=== PATIENT | male | born 1940 | race Caucasian/White ===

== ENCOUNTER 2018-08-16 04:25 | Inpatient (IN) ==
[2018-08-16] MEDS ORDERED: 0.9 % Sodium Chloride 1,000 ML IVC ONE (04:37)
[2018-08-16] MEDS ORDERED: methylPREDNISolone 125 MG/2 ML VIAL IVP ONE (04:47)
[2018-08-16] MEDS ORDERED: Ipratropium/Albuterol Neb 3 ML IH ONE (04:47)
--- NOTE | 2018-08-16 05:03 | Emergency Department Note ---
Disposition Clinical Impression: Hypoxia, Severe sepsis, Acute kidney injury Pneumonia Qualifiers: Pneumonia type: due to unspecified organism Laterality: unspecified laterality Lung location: unspecified part of lung Qualified Code(s): J18.9 - Pneumonia, unspecified organism Disposition: Admitted As Inpatient Condition: Serious Time of Disposition: 06:06 SOB HPI - General Chief Complaint: ED Shortness of Breath/Dyspnea Stated Complaint: Saqib coughing up blood Time Seen by Provider: 08/16/18 04:29 Source: patient, family Mode of arrival: ambulatory Limitations: no limitations Nursing Notes Reviewed: Yes Vital Signs Reviewed: Yes - History of Present Illness 77-year-old male history of COPD on 3L home oxygen supplementation, CHF, atrial fibrillation on Eliquis, and CAD presents emergency department with Sun with complaint of difficulty breathing and cough. Reports 2 days of worsening difficulty breathing with nonproductive cough. Patient was febrile here. Den ies any fevers or chills at home. He reports some chest pain with history of atrial fibrillation. He also reports the past 3 hours he was coughing and notice blood. Patient was coughing during my examination and no blood was noted. Reports of a cracked rib after fall 6 months ago. Denies any other recent injury or trauma. Has not noticed any leg swelling. He has been using inhalers at home and reports improvement with them. He denies any recent hospitalization, antibiotic use or steroid use. He denies any G.I. bleed symptoms. Pt Subjective Complaint: shortness of breath, cough - Related Data Home Medications Medication Instructions Recorded Confirmed Albuterol Sulfate [Albuterol 2 puff IH Q6HR PRN 09/16/16 08/16/18 Inhaler] Amlodipine Besylate 10 mg PO DAILY 09/16/16 08/16/18 Apixaban [Eliquis] 5 mg PO BID 09/16/16 08/16/18 Aspirin [Lo-Dose Aspirin EC] 81 mg PO DAILY 09/16/16 08/16/18 Budesonide/Formoterol 160/4.5 2 puff IH BIDR 09/16/16 08/16/18 [Symbicort 160/4.5] Fluticasone Propionate Nasal 1 spray NS BID 09/16/16 08/16/18 [Flonase] Furosemide [Lasix] 80 mg PO DAILY 09/16/16 08/16/18 Guaifenesin [Mucus Relief] 400 mg PO QID PRN 09/16/16 08/16/18 Lovastatin 20 mg PO QPM 09/16/16 08/16/18 Montelukast [Singulair] 10 mg PO HS 09/16/16 08/16/18 Omeprazole 20 mg PO DAILY 09/16/16 08/16/18 Potassium Chloride [Klor-Con 10] 10 meq PO DAILY 09/16/16 08/16/18 Tamsulosin HCl [Flomax] 0.8 mg PO DAILY 09/16/16 08/16/18 Albuterol Neb [Proventil Neb] 2.5 mg IH Q6H PRN 12/22/17 08/16/18 Spironolactone [Aldactone] 12.5 mg PO DAILY 12/22/17 08/16/18 Allopurinol [Zyloprim 100 MG] 200 mg PO BID 08/16/18 08/16/18 Cholecalciferol (D-3) [Vitamin D] 1,000 unit PO DAILY 08/16/18 08/16/18 Ipratropium [Atrovent Inhaler] 1 puff IH TID PRN 08/16/18 08/16/18 Metoprolol Succinate [Toprol Xl] 50 mg PO DAILY 08/16/18 08/16/18 hydrALAZINE [HydrALAZINE] 25 mg PO Q8HR 08/16/18 08/16/18 Allergies Allergy/AdvReac Type Severity Reaction Status Date / Time lisinopril Allergy UNKNOWN Verified 02/19/18 13:50 losartan Allergy UNKNOWN Verified 02/19/18 13:50 simvastatin Allergy UNKNOWN Verified 02/19/18 13:50 All systems ED: reviewed and negative except as stated. Review of Systems: As Per HPI Constitutional: Reports: fever. Denies: chills ENT ED: Denies: congestion Cardiovascular: Reports: chest pain, dyspnea on exertion. Denies: palpitations Respiratory: Reports: cough, dyspnea Gastrointestinal: Denies: abdominal pain, nausea, vomiting, hematemesis, melena, hematochezia Genitourinary: Denies: urgency, dysuria Musculoskeletal: Denies: back pain Integumentary: Denies: rash, abrasion Neurological: Denies: headache Endocrine: Denies: fatigue Past Medical History - Past Medical History Attestation: Yes The following information was validated with the patient. Source: patient Medical history: Reports: arthritis, atrial fibrillation, cancer, CHF, COPD, CVA, GERD, hyperlipidemia, hypertension, myocardial infarction, renal disease, TIA, other - Social History Smoking Status: Former smoker Smokeless Tobacco Status: No Alcohol use: Reports: rarely Drug use: Reports: none Physical Exam - General Limitations: no limitations General appearance: alert, in distress (Respiratory), obese - Head Head exam: atraumatic, normocephalic, normal inspection - Eye Eye exam: Present: normal appearance, PERRL, EOMI - ENT ENT exam: normal exam, normal oropharynx, mucous membranes moist - Neck Neck exam: Present: normal inspection, full ROM, trachea midline - Chest Chest inspection: Present: normal inspection, symmetric chest wall rise - Respiratory Respiratory exam: Present: respiratory distress, wheezes (Bilateral), prolonged expiratory phase, other (Tight aeration) - Expanded Respiratory Exam Location: wheezes: Left, Right, rales: Right, Left - Cardiovascular Cardiovascular exam: Present: regular rate, normal rhythm, normal heart sounds - Abdominal Exam Abdominal exam: Present: soft, Non-Tender, normal bowel sounds. Absent: tenderness, distention, guarding, rebound, rigidity - Extremities Exam Extremities exam: Present: normal inspection, full ROM, normal capillary refill. Absent: tenderness, pedal edema - Back Exam Back exam: Present: normal inspection, full ROM. Absent: tenderness - Neurological Exam Neurological exam: Present: alert, oriented X3 - Psychiatric Psychiatric exam: Present: normal affect, anxious - Skin Skin exam: Present: warm, dry, intact, normal color. Absent: rash, cyanosis, diaphoresis Course Course Narrative: Patient presents with difficulty breathing cough and fever here in the emergency department. Symptoms for the past 48 hours. Patient has a history of chronic atrial fibrillation in history of COPD. Breathing treatments have been helping at home. He does meet SIRS criteria even his fever and mild tachycardia 105. Sepsis workup initiated. Patient initially hypoxic on arrival and was placed on supplemental oxygen. Will head charrer DuoNeb treatment and steroids, if he co ntinues to decompensate a consider noninvasive positive pressure ventilation. - Reevaluation(s) Reevaluation #1: Patient received a total of 3 DuoNeb treatment with steroids with some improvement of the wheezing however continues to have tight aeration. He is hypoxic even on the non-rebreather. He was transitioned to a CPAP with now oxygen saturations in the upper 80s. Arterial blood gas shows normal pH with a CO2 of 33. IV Tylenol for fever. Review of his chest x-ray shows a pneumonia that appears greater on the left and the right. At this time sepsis was identified at 0518. He has a mild leukocytosis. His lactate is elevated greater than 2. Troponin less than 0.03. He is not hypotensive but is considered severe sepsis. Will continue with cautious fluid resuscitation given his history of congestive heart failure. Will treat him with ceftriaxone and azithromycin. Patient will require admission for further evaluation and treatment for his hypoxia, community acquired pneumonia, severe sepsis. Time: 05:18 Reevaluation #2: Patient has a history of lung cancer in remission after radiation which he finished approximately 2 years ago. Time: 06:18 - Consultations Consultation #1: Spoke with on-call hospitalist luís Barnhart to admit for pneumonia, severe sepsis, hypoxia. No further orders at this time Time: 06:17 Vital Signs Temperature 101.4 F H 08/16/18 04:29 Pulse Rate 115 08/16/18 04:29 Respiratory Rate 25 08/16/18 04:29 Blood Pressure 116/67 08/16/18 04:29 O2 Sat by Pulse Oximetry 88 08/16/18 04:29 Temperature 101.4 F H 08/16/18 04:29 Pulse Rate 105 08/16/18 05:05 Respiratory Rate 28 08/16/18 05:20 Blood Pressure 114/90 08/16/18 05:05 O2 Sat by Pulse Oximetry 88 08/16/18 05:20 Oxygen Delivery Oxygen Delivery Aerosol Mask Shortness of Breath/Dyspnea - [facility] Narrative Medical decision making narrative: Patient was discussed with my attending physician who agrees with ED management and final disposition. They independently evaluated the patient. Please refer to their attestation to this encounter for additional information. This note was generated by [employer] voice recognition software and as a result grammatical or spelling errors may occur using this program. - Medical Records Medical records reviewed: Yes I reviewed the patient's medical records. - Lab Data Lab results reviewed: Yes I reviewed the patient's lab results. Result diagrams: 08/16/18 05:16 08/16/18 05:16 Lab Results 1108/16/18 08/16/18 Range/Units 05:14 05:16 05:16 WBC 13.6 H (4.3-11.1) K/mcL RBC 4.61 (4.19-5.50) M/mcL Hgb 12.8 L (12.9-16.9) g/dL Hct 40.4 (37.5-50.1) % MCV 87.6 (83.0-100.0) fL MCH 27.8 L (28.0-33.3) pg MCHC 31.7 (31.6-35.5) g/dL RDW 16.0 H (11.5-14.5) % Plt Count 179 (140-400) K/mcL MPV 10.2 (9.4-12.4) fL Immature Gran % 0.5 (0-4) % Seg Neutrophils % 83.1 % Lymphocytes % 9.6 % Monocytes % 6.6 % Eosinophils % 0.0 % Basophils % 0.2 % Neutrophils # 11.3 H (1.6-8.9) K/mcL Lymphocytes # 1.3 (0.6-4.6) K/mcL Monocytes # 0.9 (0.0-1.3) K/mcL Eosinophils # 0.0 (0.0-0.6) K/mcL Basophils # 0.0 (0.0-0.2) K/mcL PT 17.0 H (9.4-12.1) Seconds INR 1.5 APTT 31.1 (26.0-36.0) Seconds Sample Site R Radial ABG pH 7.45 (7.32-7.45) pH Units ABG pCO2 33 L (35-45) mmHg ABG pO2 52 L (85-104) mmHg ABG HCO3 23 (21-27) mEq/L ABG Total CO2 24 (20-26) mEq/L ABG O2 Saturation 88 L (95-98) % ABG Base Excess 0 (-2 to 3) mEq/L Ilan Test N/A O2 Delivery Device AeroMask Inspired O2 10.0 (1-15=lpm [id number]=%) Sodium (136-145) mEq/L Potassium (3.5-5.1) mEq/L Chloride (98-107) mEq/L Carbon Dioxide (23-29) mEq/L BUN (8-23) mg/dL Creatinine (0.70-1.30) mg/dL Est GFR ( Amer) (> 60) Est GFR (Non-Af Amer) (> 60) BUN/Creatinine Ratio (6-26) Glucose (70-105) mg/dL Calculated Osmolality (280-300) Lactic Acid (0.5-2.2) mmol/L Calcium (8.6-10.3) mg/dL Phosphorus (2.7-4.5) mg/dL Magnesium (1.6-2.6) mg/dL Total Bilirubin (0.3-1.0) mg/dL Direct Bilirubin (0.0-0.2) mg/dL Indirect Bilirubin (0.0-1.2) mg/dL AST (13-39) Units/L ALT (7-52) Units/L Alkaline Phosphatase (34-104) Units/L Troponin I (< 0.04) ng/mL Serum Total Protein (6.4-8.9) g/dL Albumin (3.5-5.7) g/dL Globulin (2.4-3.5) g/dL Albumin/Globulin Ratio (1.1-2.2) 08/16/18 08/16/18 Range/Units 05:16 05:16 WBC (4.3-11.1) K/mcL RBC (4.19-5.50) M/mcL Hgb (12.9-16.9) g/dL Hct (37.5-50.1) % MCV (83.0-100.0) fL MCH (28.0-33.3) pg MCHC (31.6-35.5) g/dL RDW (11.5-14.5) % Plt Count (140-400) K/mcL MPV (9.4-12.4) fL Immature Gran % (0-4) % Seg Neutrophils % % Lymphocytes % % Monocytes % % Eosinophils % % Basophils % % Neutrophils # (1.6-8.9) K/mcL Lymphocytes # (0.6-4.6) K/mcL Monocytes # (0.0-1.3) K/mcL Eosinophils # (0.0-0.6) K/mcL Basophils # (0.0-0.2) K/mcL PT (9.4-12.1) Seconds INR APTT (26.0-36.0) Seconds Sample Site ABG pH (7.32-7.45) pH Units ABG pCO2 (35-45) mmHg ABG pO2 (85-104) mmHg ABG HCO3 (21-27) mEq/L ABG Total CO2 (20-26) mEq/L ABG O2 Saturation (95-98) % ABG Base Excess (-2 to 3) mEq/L Ilan Test O2 Delivery Device Inspired O2 (1-15=lpm [id number]=%) Sodium 138 (136-145) mEq/L Potassium 4.0 (3.5-5.1) mEq/L Chloride 105 (98-107) mEq/L Carbon Dioxide 23 (23-29) mEq/L BUN 22 (8-23) mg/dL Creatinine 1.45 H (0.70-1.30) mg/dL Est GFR ( Amer) 57 L (> 60) Est GFR (Non-Af Amer) 47 L (> 60) BUN/Creatinine Ratio 15 (6-26) Glucose 164 H (70-105) mg/dL Calculated Osmolality 293 (280-300) Lactic Acid 2.4 H (0.5-2.2) mmol/L Calcium 9.2 (8.6-10.3) mg/dL Phosphorus 1.8 L (2.7-4.5) mg/dL Magnesium 2.0 (1.6-2.6) mg/dL Total Bilirubin 1.4 H (0.3-1.0) mg/dL Direct Bilirubin 0.3 H (0.0-0.2) mg/dL Indirect Bilirubin 1.1 (0.0-1.2) mg/dL AST 11 L (13-39) Units/L ALT 9 (7-52) Units/L Alkaline Phosphatase 55 (34-104) Units/L Troponin I < 0.03 (< 0.04) ng/mL Serum Total Protein 6.3 L (6.4-8.9) g/dL Albumin 4.0 (3.5-5.7) g/dL Globulin 2.3 L (2.4-3.5) g/dL Albumin/Globulin Ratio 1.7 (1.1-2.2) - Radiology Data Radiology results reviewed: Yes I reviewed the patient's radiology results. Chest X-Ray 08/16/18 04:41 IMPRESSION: Bibasilar airspace disease left greater than right concerning for pneumonia. D/ / Panda Mills MD / Panda Mills MD Interpreting Provider: Panda Mills MD - EKG Data EKG attestation: Yes I reviewed and interpreted this EKG. EKG results narrative: EKG performed 451 shows atrial fibrillation with a heart rhythm of 118, no ST elevation or depression, normal axis, good R wave progression. There is no old EKG available for comparison at this time. No acute ischemic changes.
[2018-08-16 05:22] LABS: ABG Base Excess 0 mEq/L (-2 to 3); ABG HCO3 23 mEq/L (21-27); ABG Oxygen Saturation 88 % (95-98); ABG PCO2 33 mmHg (35-45); ABG PH 7.45 pH Units (7.32-7.45); ABG PO2 52 mmHg (85-104); ABG TCO2 24 mEq/L (20-26)
[2018-08-16] MEDS ORDERED: *HR* LORazepam 2 MG/ML VIAL IVP ONE (05:26)
[2018-08-16] MEDS ORDERED: *HR* LORazepam 2 MG/ML VIAL ONE (05:28)
[2018-08-16 05:35] LABS: Basophils % 0.2 %; Hematocrit 40.4 % (37.5-50.1); Hemoglobin 12.8 g/dL (12.9-16.9); Immature Granulocytes % 0.5 % (0-4); Lymphocytes # 1.3 K/mcL (0.6-4.6); Lymphocytes % 9.6 %; Mean Corpuscular HGB Conc 31.7 g/dL (31.6-35.5); Mean Corpuscular Hemoglobin 27.8 pg (28.0-33.3); Mean Corpuscular Volume 87.6 fL (83.0-100.0); Mean Platelet Volume 10.2 fL (9.4-12.4); Monocytes # 0.9 K/mcL (0.0-1.3); Monocytes % 6.6 %; Neutrophils # 11.3 K/mcL (1.6-8.9); Platelet Count 179 K/mcL (140-400); Red Blood Count 4.61 M/mcL (4.19-5.50); Segmented Neutrophils % 83.1 %
[2018-08-16 05:47] LABS: INR 1.5
[2018-08-16] MEDS ORDERED: Acetaminophen IV 1,000 MG/100 ML INFUS..BTL IVPB ONE (05:47)
[2018-08-16 05:49] LABS: Activated Partial Thrombo Time 31.1 Seconds (26.0-36.0)
[2018-08-16 05:57] LABS: Alanine Aminotransferase 9 Units/L (7-52); Albumin/Globulin Ratio 1.7 (1.1-2.2); Alkaline Phosphatase 55 Units/L (34-104); Aspartate Amino Transferase 11 Units/L (13-39); BUN/Creatinine Ratio 15 (6-26); Bilirubin,Direct 0.3 mg/dL (0.0-0.2); Bilirubin,Indirect 1.1 mg/dL (0.0-1.2); Bilirubin,Total 1.4 mg/dL (0.3-1.0); Blood Urea Nitrogen 22 mg/dL (8-23); Calcium 9.2 mg/dL (8.6-10.3); Carbon Dioxide 23 mEq/L (23-29); Chloride 105 mEq/L (98-107); Globulin 2.3 g/dL (2.4-3.5); Glucose 164 mg/dL (70-105); Osmolality,Calculated 293 (280-300); Phosphorous 1.8 mg/dL (2.7-4.5); Sodium 138 mEq/L (136-145); Total Protein 6.3 g/dL (6.4-8.9); Troponin I < 0.03 ng/mL (< 0.04); eGFR For Non-African Americans 47 (> 60)
[2018-08-16] MEDS ORDERED: Azithromycin 500 MG in D5% in Water 250 ML IVPB ONE (06:02)
[2018-08-16] MEDS ORDERED: cefTRIAXone 1,000 MG in Water for inj. (sterile) 20 ML 10 ML IVP ONE ×2 (06:03→09:00)
--- NOTE | 2018-08-16 07:52 | Emergency Department Note ---
Disposition Clinical Impression: Hypoxia, Severe sepsis, Acute kidney injury Pneumonia Qualifiers: Pneumonia type: due to unspecified organism Laterality: unspecified laterality Lung location: unspecified part of lung Qualified Code(s): J18.9 - Pneumonia, unspecified organism Disposition: Admitted As Inpatient Condition: Serious General Adult HPI - General Chief complaint: ED Shortness of Breath/Dyspnea Stated complaint: Saqib coughing up blood Time Seen by Provider: 08/16/18 04:29 Source: patient, family Mode of arrival: ambulatory Limitations: no limitations Nursing Notes Reviewed: Yes Vital Signs Reviewed: Yes - History of Present Illness Pain Scale: 10 - Related Data Home Medications Medication Instructions Recorded Confirmed Albuterol Sulfate [Albuterol 2 puff IH Q6HR PRN 09/16/16 08/16/18 Inhaler] Amlodipine Besylate 10 mg PO DAILY 09/16/16 08/16/18 Apixaban [Eliquis] 5 mg PO BID 09/16/16 08/16/18 Aspirin [Lo-Dose Aspirin EC] 81 mg PO DAILY 09/16/16 08/16/18 Budesonide/Formoterol 160/4.5 2 puff IH BIDR 09/16/16 08/16/18 [Symbicort 160/4.5] Fluticasone Propionate Nasal 1 spray NS BID 09/16/16 08/16/18 [Flonase] Furosemide [Lasix] 80 mg PO DAILY 09/16/16 08/16/18 Guaifenesin [Mucus Relief] 400 mg PO QID PRN 09/16/16 08/16/18 Lovastatin 20 mg PO QPM 09/16/16 08/16/18 Montelukast [Singulair] 10 mg PO HS 09/16/16 08/16/18 Omeprazole 20 mg PO DAILY 09/16/16 08/16/18 Potassium Chloride [Klor-Con 10] 10 meq PO DAILY 09/16/16 08/16/18 Tamsulosin HCl [Flomax] 0.8 mg PO DAILY 09/16/16 08/16/18 Albuterol Neb [Proventil Neb] 2.5 mg IH Q6H PRN 12/22/17 08/16/18 Spironolactone [Aldactone] 12.5 mg PO DAILY 12/22/17 08/16/18 Allopurinol [Zyloprim 100 MG] 200 mg PO BID 08/16/18 08/16/18 Cholecalciferol (D-3) [Vitamin D] 1,000 unit PO DAILY 08/16/18 08/16/18 Ipratropium [Atrovent Inhaler] 1 puff IH TID PRN 08/16/18 08/16/18 Metoprolol Succinate [Toprol Xl] 50 mg PO DAILY 08/16/18 08/16/18 hydrALAZINE [HydrALAZINE] 25 mg PO Q8HR 08/16/18 08/16/18 Allergies Allergy/AdvReac Type Severity Reaction Status Date / Time lisinopril Allergy UNKNOWN Verified 02/19/18 13:50 losartan Allergy UNKNOWN Verified 02/19/18 13:50 simvastatin Allergy UNKNOWN Verified 02/19/18 13:50 Constitutional: Reports: fever. Denies: chills ENT ED: Denies: congestion Cardiovascular: Reports: chest pain, dyspnea on exertion. Denies: palpitations Respiratory: Reports: cough, dyspnea Gastrointestinal: Denies: abdominal pain, nausea, vomiting, hematemesis, melena, hematochezia Genitourinary: Denies: urgency, dysuria Musculoskeletal: Denies: back pain Integumentary: Denies: rash, abrasion Neurological: Denies: headache Endocrine: Denies: fatigue Past Medical History - Past Medical History Medical history: Reports: arthritis, atrial fibrillation, cancer, CHF, COPD, CVA, GERD, hyperlipidemia, hypertension, myocardial infarction, renal disease, TIA, other - Social History Smoking Status: Former smoker Smokeless Tobacco Status: No Alcohol use: Reports: rarely Drug use: Reports: none Physical Exam - General Limitations: no limitations General appearance: alert, in distress (Respiratory), obese Course Vital Signs Temperature 101.4 F H 08/16/18 04:29 Pulse Rate 115 08/16/18 04:29 Respiratory Rate 25 08/16/18 04:29 Blood Pressure 116/67 08/16/18 04:29 O2 Sat by Pulse Oximetry 88 08/16/18 04:29 Temperature 101.4 F H 08/16/18 04:29 Pulse Rate 112 08/16/18 07:22 Respiratory Rate 24 08/16/18 07:22 Blood Pressure 91/51 08/16/18 07:22 O2 Sat by Pulse Oximetry 91 08/16/18 07:22 Oxygen Delivery Oxygen Delivery Bipap Medical Decision Making - Lab Data Lab results reviewed: Yes I reviewed the patient's lab results. Result diagrams: 08/16/18 05:16 08/16/18 05:16 Lab Results 08/16/18 08/16/18 08/16/18 Range/Units 05:14 05:16 05:16 WBC 13.6 H (4.3-11.1) K/mcL RBC 4.61 (4.19-5.50) M/mcL Hgb 12.8 L (12.9-16.9) g/dL Hct 40.4 (37.5-50.1) % MCV 87.6 (83.0-100.0) fL MCH 27.8 L (28.0-33.3) pg MCHC 31.7 (31.6-35.5) g/dL RDW 16.0 H (11.5-14.5) % Plt Count 179 (140-400) K/mcL MPV 10.2 (9.4-12.4) fL Immature Gran % 0.5 (0-4) % Seg Neutrophils % 83.1 % Lymphocytes % 9.6 % Monocytes % 6.6 % Eosinophils % 0.0 % Basophils % 0.2 % Neutrophils # 11.3 H (1.6-8.9) K/mcL Lymphocytes # 1.3 (0.6-4.6) K/mcL Monocytes # 0.9 (0.0-1.3) K/mcL Eosinophils # 0.0 (0.0-0.6) K/mcL Basophils # 0.0 (0.0-0.2) K/mcL PT 17.0 H (9.4-12.1) Seconds INR 1.5 APTT 31.1 (26.0-36.0) Seconds Sample Site R Radial ABG pH 7.45 (7.32-7.45) pH Units ABG pCO2 33 L (35-45) mmHg ABG pO2 52 L (85-104) mmHg ABG HCO3 23 (21-27) mEq/L ABG Total CO2 24 (20-26) mEq/L ABG O2 Saturation 88 L (95-98) % ABG Base Excess 0 (-2 to 3) mEq/L Ilan Test N/A O2 Delivery Device AeroMask Inspired O2 10.0 (1-15=lpm [id number]=%) Sodium (136-145) mEq/L Potassium (3.5-5.1) mEq/L Chloride (98-107) mEq/L Carbon Dioxide (23-29) mEq/L BUN (8-23) mg/dL Creatinine (0.70-1.30) mg/dL Est GFR ( Amer) (> 60) Est GFR (Non-Af Amer) (> 60) BUN/Creatinine Ratio (6-26) Glucose (70-105) mg/dL Calculated Osmolality (280-300) Lactic Acid (0.5-2.2) mmol/L Calcium (8.6-10.3) mg/dL Phosphorus (2.7-4.5) mg/dL Magnesium (1.6-2.6) mg/dL Total Bilirubin (0.3-1.0) mg/dL Direct Bilirubin (0.0-0.2) mg/dL Indirect Bilirubin (0.0-1.2) mg/dL AST (13-39) Units/L ALT (7-52) Units/L Alkaline Phosphatase (34-104) Units/L Troponin I (< 0.04) ng/mL Serum Total Protein (6.4-8.9) g/dL Albumin (3.5-5.7) g/dL Globulin (2.4-3.5) g/dL Albumin/Globulin Ratio (1.1-2.2) 08/16/18 08/16/18 Range/Units 05:16 05:16 WBC (4.3-11.1) K/mcL RBC (4.19-5.50) M/mcL Hgb (12.9-16.9) g/dL Hct (37.5-50.1) % MCV (83.0-100.0) fL MCH (28.0-33.3) pg MCHC (31.6-35.5) g/dL RDW (11.5-14.5) % Plt Count (140-400) K/mcL MPV (9.4-12.4) fL Immature Gran % (0-4) % Seg Neutrophils % % Lymphocytes % % Monocytes % % Eosinophils % % Basophils % % Neutrophils # (1.6-8.9) K/mcL Lymphocytes # (0.6-4.6) K/mcL Monocytes # (0.0-1.3) K/mcL Eosinophils # (0.0-0.6) K/mcL Basophils # (0.0-0.2) K/mcL PT (9.4-12.1) Seconds INR APTT (26.0-36.0) Seconds Sample Site ABG pH (7.32-7.45) pH Units ABG pCO2 (35-45) mmHg ABG pO2 (85-104) mmHg ABG HCO3 (21-27) mEq/L ABG Total CO2 (20-26) mEq/L ABG O2 Saturation (95-98) % ABG Base Excess (-2 to 3) mEq/L Ilan Test O2 Delivery Device Inspired O2 (1-15=lpm [id number]=%) Sodium 138 (136-145) mEq/L Potassium 4.0 (3.5-5.1) mEq/L Chloride 105 (98-107) mEq/L Carbon Dioxide 23 (23-29) mEq/L BUN 22 (8-23) mg/dL Creatinine 1.45 H (0.70-1.30) mg/dL Est GFR ( Amer) 57 L (> 60) Est GFR (Non-Af Amer) 47 L (> 60) BUN/Creatinine Ratio 15 (6-26) Glucose 164 H (70-105) mg/dL Calculated Osmolality 293 (280-300) Lactic Acid 2.4 H (0.5-2.2) mmol/L Calcium 9.2 (8.6-10.3) mg/dL Phosphorus 1.8 L (2.7-4.5) mg/dL Magnesium 2.0 (1.6-2.6) mg/dL Total Bilirubin 1.4 H (0.3-1.0) mg/dL Direct Bilirubin 0.3 H (0.0-0.2) mg/dL Indirect Bilirubin 1.1 (0.0-1.2) mg/dL AST 11 L (13-39) Units/L ALT 9 (7-52) Units/L Alkaline Phosphatase 55 (34-104) Units/L Troponin I < 0.03 (< 0.04) ng/mL Serum Total Protein 6.3 L (6.4-8.9) g/dL Albumin 4.0 (3.5-5.7) g/dL Globulin 2.3 L (2.4-3.5) g/dL Albumin/Globulin Ratio 1.7 (1.1-2.2) - Radiology Data Radiology results reviewed: Yes I reviewed the patient's radiology results. Chest X-Ray 08/16/18 04:41 IMPRESSION: Bibasilar airspace disease left greater than right concerning for pneumonia. D/ / Panda Mills MD / Panda Mills MD Interpreting Provider: Panda Mills MD - EKG Data EKG #1 EKG attestation: Yes I reviewed and interpreted this EKG. EKG results narrative: EKG shows atrial fibrillation with RVR with a ventricular rate of 118. No acute ST segment elevation or depression. Critical Care Time Critical Care Time: Yes Total Critical Care Time: 40 Attestation: Critical care performed: Time is exclusive of separately billable procedures. Time includes: direct patient care, patient reassessment, coordination of patient care, interpretation of data (laboratory data, radiology data, and respiratory data), review of patient's medical records, medical consultation and documentation of patient care. Procedures included in critical care time: Procedures excluded from critical care time: Attestation Statement - Attestation Attestation: I, Gonzalo Wahl MD, personally evaluated this patient and discussed their management with the resident physician. I reviewed the resident's note and agree with the documented findings, medical decision making, and plan of care. 77-year-old male with history of COPD presents to the emergency department with a complaint of increasing cough and shortness of breath over the past 2 days. Symptoms worse tonight and developed some hemoptysis a few hours prior to arrival. Home oxygen and nebulizers tonight did not seem to be helping. On examination patient is a well-developed obese elderly male in moderate respiratory distress. He is alert and oriented 3. There is no cyanosis or diaphoresis. Breath sounds are decreased bilaterally with scattered bilateral expiratory wheezes. Heart irregularly irregular with a mild tachycardia. Abdomen is soft with present bowel sounds. No tenderness on palpation. No pedal edema. Chest x-ray shows bibasilar pneumonia, left worse than right. EKG shows atrial fibrillation with RVR. Labs reviewed. Elevated lactic acid. Patient meets severe sepsis criteria. IV antibiotics initiated. He was placed on CPAP. The hospitalist, Dr. Avalos, was consulted and accepted admission of the patient.
[2018-08-16] MEDS: Ipratropium/Albuterol Neb 3 ML IH SCH ×5 (08:24→23:58)
[2018-08-16] MEDS ORDERED: Doxycycline 100 MG in 0.9 % Sodium Chloride Mini Bag 100 ML IVPB SCH (09:00)
--- NOTE | 2018-08-16 09:35 | Pulmonology History & Physical ---
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 Qualifiers: Pneumonia type: due to unspecified organism Laterality: left Lung location: unspecified part of lung Qualified Code(s): J18.9 - Pneumonia, unspecified organism (2) Hypoxia Current visit: Yes Status: Acute Continue supplemental O2 to maintain SpO2 around 88-90% Plan as above (3) Severe sepsis Current visit: Yes Status: Acute Initial temp of 101.4 WBC 13.6 Tachypnic with RR 25 Tachycardic with HR 115 BP 116/67 Presenting Lactic acid of 2.4, has since increased to 4.5 Likely secondary to left sided pneumonia Blood cultures x2 obtained and pending Abx as above 2.5L LR ordered Will continue to monitor (4) Hemoptysis Current visit: Yes Status: Acute Likely secondary to left lower lobe PNA (5) Acute kidney injury Current visit: Yes Status: Acute Cr elevated at 1.45 on admission Unknown baseline kidney function Likely secondary to sepsis from PNA vs hypovolemia Lactated Ringers as above Continue to monitor Avoid nephrotoxin and renally dose medications (6) DVT prophylaxis Current visit: Yes Status: Acute On Eliquis at home, but holding with acute bleed EPCDs as tolerated History of Present Illness Chief complaint: Hemoptysis HPI: Mr. Victoria is a 77M with PMH of COPD on 3lpm O2 at home, CHF, afib on Eliquis, and CAD. He presented to the ED today complaining of increased cough and hemoptysis. States the increase in cough began approximately 2 days ago and has been accompanied by increased shortness of breath. States his home oxygen and nebulizers have not been helping. He does admit to some accompanying fever, chills, and diaphoresis. Denies any chest pain, headaches, numbness, or tingling. The hemoptysis began this morning and has been blood tinged sputum rather than mykel blood loss. He does state that he cracked a rib during a fall 6 months ago, but has not experienced complications at this time. He denies any other injuries, no recent hospitalizations, no recent abx or steroid use. He denies any abdominal pain, nausea, vomiting, or change in stools. Past Med Surg Social Fam HX - Past Medical History Medical history: arthritis, atrial fibrillation, cancer, CHF, COPD, CVA, GERD, hyperlipidemia, hypertension, myocardial infarction, renal disease, TIA, other - Social History Smoking Status: Former smoker Smokeless Tobacco Status: No Alcohol use: rarely Drug use: none - Family History Father Adopted: No Family Member Ethnicity: Non- Living Status: Hx Family Cardiac Disorders: Yes (mother) Hx Family Respiratory Disorders: Yes (father) Hx Family Cancer: Yes (father) Hx Family GI Disorders: No Hx Family Endocrine Disorder: Yes (mother diabetes) Hx Family Neuromuscular Disorders: No Hx Family Neurologic Disorders: No Hx Family HEENT Disorders: No Hx Family Autoimmune Disorders: No Medications and Allergies Albuterol Sulfate [Albuterol Inhaler] 2 puff IH Q6HR PRN 09/16/16 [History] Amlodipine Besylate 10 mg PO DAILY 09/16/16 [History] Apixaban [Eliquis] 5 mg PO BID 09/16/16 [History] Aspirin [Lo-Dose Aspirin EC] 81 mg PO DAILY 09/16/16 [History] Budesonide/Formoterol 160/4.5 [Symbicort 160/4.5] 2 puff IH BIDR 09/16/16 [History] Fluticasone Propionate Nasal [Flonase] 1 spray NS BID 09/16/16 [History] Furosemide [Lasix] 80 mg PO DAILY 09/16/16 [History] Guaifenesin [Mucus Relief] 400 mg PO QID PRN 09/16/16 [History] Lovastatin 20 mg PO QPM 09/16/16 [History] Montelukast [Singulair] 10 mg PO HS 09/16/16 [History] Omeprazole 20 mg PO DAILY 09/16/16 [History] Potassium Chloride [Klor-Con 10] 10 meq PO DAILY 09/16/16 [History] Tamsulosin HCl [Flomax] 0.8 mg PO DAILY 09/16/16 [History] Albuterol Neb [Proventil Neb] 2.5 mg IH Q6H PRN 12/22/17 [History] Spironolactone [Aldactone] 12.5 mg PO DAILY 12/22/17 [History] Allopurinol [Zyloprim 100 MG] 200 mg PO BID 08/16/18 [History] Cholecalciferol (D-3) [Vitamin D] 1,000 unit PO DAILY 08/16/18 [History] Ipratropium [Atrovent Inhaler] 1 puff IH TID PRN 08/16/18 [History] Metoprolol Succinate [Toprol Xl] 50 mg PO DAILY 08/16/18 [History] hydrALAZINE [HydrALAZINE] 25 mg PO Q8HR 08/16/18 [History] Allergy/AdvReac Type Severity Reaction Status Date / Time lisinopril Allergy UNKNOWN Verified 02/19/18 13:50 losartan Allergy UNKNOWN Verified 02/19/18 13:50 simvastatin Allergy UNKNOWN Verified 02/19/18 13:50 All Systems: The remainder of the systems were reviewed and are negative - Constitutional Constitutional: chills, excessive sweating, fever(s), no frequent falls, no headache(s), no lethargy, no weakness - Cardiovascular Cardiovascular: diaphoresis, dyspnea, dyspnea on exertion, no chest pain, no chest pain at rest, no chest pain with activity, no edema, no lightheadedness, no palpitations, no syncope - Respiratory Respiratory: cough, dyspnea, hemoptysis, dyspnea on exertion, chest congestion, excessive phlegm production, change in phlegm color, no wheezing, no pain on inspirtation, no pain with cough - Gastrointestinal Gastrointestinal: no abdominal pain, no nausea, no vomiting - Musculoskeletal Musculoskeletal: no weakness, no numbness, no tingling - Integumentary Integumentary: no erythema, no rash, no jaundice - Neurological Neurological: no dizziness, no frequent falls, no numbness, no tingling, no weakness Physical Examination Vital Signs: Vital Signs, Last 4 Hours Pulse Resp BP Pulse Ox 08/16/18 08:27 115 20 106/55 93 08/16/18 07:22 112 24 91/51 91 General appearance: no acute distress, alert Eyes: nonicteric ENT: oropharynx dry Neck: supple, no lymphadenopathy, no JVD Effort: mildly labored Inspection: normal Auscultation: bilateral: diminished breath sounds Percussion: bilateral: not dull Tactile fremitus: bilateral: normal Cardiovascular: regular rate and rhythm Gastrointestinal: normoactive bowel sounds, soft, non-tender, non-distended Integumentary: normal Extremities: no cyanosis, no edema, no clubbing, pink and warm, pulses normal Musculoskeletal: no deformities Gait: normal posture normal mental status, non-focal exam mood appropriate, affect normal Results - Laboratory Findings CBC and BMP: 08/16/18 05:16 08/16/18 05:16 ABG ABG pH 7.45 pH Units (7.32-7.45) 08/16/18 05:14 ABG pCO2 33 mmHg (35-45) L 08/16/18 05:14 ABG pO2 52 mmHg (85-104) L 08/16/18 05:14 ABG O2 Saturation 88 % (95-98) L 08/16/18 05:14 PT/INR, D-dimer PT 17.0 Seconds (9.4-12.1) H 08/16/18 05:16 Abnormal lab findings: Abnormal lab results WBC 13.6 K/mcL (4.3-11.1) H 08/16/18 05:16 Hgb 12.8 g/dL (12.9-16.9) L 08/16/18 05:16 MCH 27.8 pg (28.0-33.3) L 08/16/18 05:16 RDW 16.0 % (11.5-14.5) H 08/16/18 05:16 Neutrophils # 11.3 K/mcL (1.6-8.9) H 08/16/18 05:16 PT 17.0 Seconds (9.4-12.1) H 08/16/18 05:16 ABG pCO2 33 mmHg (35-45) L 08/16/18 05:14 ABG pO2 52 mmHg (85-104) L 08/16/18 05:14 ABG O2 Saturation 88 % (95-98) L 08/16/18 05:14 Creatinine 1.45 mg/dL (0.70-1.30) H 08/16/18 05:16 Est GFR ( Amer) 57 (> 60) L 08/16/18 05:16 Est GFR (Non-Af Amer) 47 (> 60) L 08/16/18 05:16 Glucose 164 mg/dL (70-105) H 08/16/18 05:16 Lactic Acid 2.7 mmol/L (0.5-2.2) H 08/16/18 08:30 Phosphorus 1.8 mg/dL (2.7-4.5) L 08/16/18 05:16 Total Bilirubin 1.4 mg/dL (0.3-1.0) H 08/16/18 05:16 Direct Bilirubin 0.3 mg/dL (0.0-0.2) H 08/16/18 05:16 AST 11 Units/L (13-39) L 08/16/18 05:16 Serum Total Protein 6.3 g/dL (6.4-8.9) L 08/16/18 05:16 Globulin 2.3 g/dL (2.4-3.5) L 08/16/18 05:16 <Emmanuel Patricio S - Last Filed: 08/16/18 16:19> Date of Encounter: 08/16/18 History of Present Illness HPI: Mr. Victoria is a 77 year old male All Systems: The remainder of the systems were reviewed and are negative Physical Examination Vital Signs: Vital Signs, Last 4 Hours Temp Pulse Resp BP Pulse Ox 08/16/18 16:07 98.1 F 08/16/18 15:00 87 22 132/80 91 08/16/18 14:00 97 22 128/74 89 08/16/18 13:00 108 22 124/69 89 Results - Laboratory Findings CBC and BMP: 08/16/18 05:16 08/16/18 05:16 ABG ABG pH 7.45 pH Units (7.32-7.45) 08/16/18 05:14 ABG pCO2 33 mmHg (35-45) L 08/16/18 05:14 ABG pO2 52 mmHg (85-104) L 08/16/18 05:14 ABG O2 Saturation 88 % (95-98) L 08/16/18 05:14 PT/INR, D-dimer PT 17.0 Seconds (9.4-12.1) H 08/16/18 05:16 Abnormal lab findings: Abnormal lab results WBC 13.6 K/mcL (4.3-11.1) H 08/16/18 05:16 Hgb 12.8 g/dL (12.9-16.9) L 08/16/18 05:16 MCH 27.8 pg (28.0-33.3) L 08/16/18 05:16 RDW 16.0 % (11.5-14.5) H 08/16/18 05:16 Neutrophils # 11.3 K/mcL (1.6-8.9) H 08/16/18 05:16 PT 17.0 Seconds (9.4-12.1) H 08/16/18 05:16 ABG pCO2 33 mmHg (35-45) L 08/16/18 05:14 ABG pO2 52 mmHg (85-104) L 08/16/18 05:14 ABG O2 Saturation 88 % (95-98) L 08/16/18 05:14 Creatinine 1.45 mg/dL (0.70-1.30) H 08/16/18 05:16 Est GFR ( Amer) 57 (> 60) L 08/16/18 05:16 Est GFR (Non-Af Amer) 47 (> 60) L 08/16/18 05:16 Glucose 164 mg/dL (70-105) H 08/16/18 05:16 POC Glucose 251 mg/dL (70-99) H 08/16/18 15:53 Lactic Acid 4.5 mmol/L (0.5-2.2) H* 08/16/18 09:38 Phosphorus 1.8 mg/dL (2.7-4.5) L 08/16/18 05:16 Total Bilirubin 1.4 mg/dL (0.3-1.0) H 08/16/18 05:16 Direct Bilirubin 0.3 mg/dL (0.0-0.2) H 08/16/18 05:16 AST 11 Units/L (13-39) L 08/16/18 05:16 Serum Total Protein 6.3 g/dL (6.4-8.9) L 08/16/18 05:16 Globulin 2.3 g/dL (2.4-3.5) L 08/16/18 05:16 Urine Color [place] (Yellow) A 08/16/18 09:11 Ur Specific [place] 1.030 (1.010-1.025) H 08/16/18 09:11 Urine Protein 30 mg/dL (Neg-Trace) H 08/16/18 09:11 Urine Ketones Trace mg/dL (Negative) H 08/16/18 09:11 Urine Bilirubin Small (Negative) H 08/16/18 09:11 Ur Leukocyte Esterase Trace (Negative) H 08/16/18 09:11 Ur Squamous Epith Cells Many per lpf (None-Few) H 08/16/18 09:11 Ur Culture Indicated? NO. (NO) A 08/16/18 09:11 - Attending Attestation I saw and evaluated this patient and my medical decision-making was reviewed with the Resident Physician. I agree with the documented findings, disposition and treatment plan as described except to the extent set forth below. We independently had [id number] contact with the patient I spent 35 minutes of Critical Care time with this patient. It involved decision making of high complexity to assess, manipulate, and support vital organ system failure and/or to prevent further life threatening deterioration of the patient's condition. The time involved in the performance of separately reportable procedures was not counted toward critical care time. Patient seen and examined at bedside Labs, radiology, chart personally reviewed. Management was reviewed during multidisciplinary critical care rounds. [employer]: Patient is conscious oriented 3 no active [employer] issues no evidence of toxic/metabolic encephalopathy Pulm: Patient has acceptable oxygenation and ventilation COPD exacerbation due to left upper lobe, left lower lobe pneumonia, right upper lobe patient has past history of lung cancer followed by [facility] patient has some reactive mediastinal lymphadenopathy vs Metatasis I favor the former but patient will need close follow-up outpatient imaging in 4 weeks if it is still there he will need endobronchial ultrasound. Patient on bronchodilators steroids broad-s pectrum antibiotics. Patient hemoptysis is secondary to bronchitis complicated by pneumonia is no endobronchial lesions in the CT scan and also complicated by Eliquis will continue to monitor I offered bronchoscopy to the patient explained the risk and benefit patient declined it for now. Cards: Patient is hemodynamically stable but still shows signs of septic shock with tissue hyperperfusion and increased lactic acidosis to resuscitate with 30 mL per kilogram and will monitor. FEN-GI: Advance diet as tolerated Renal: Labs and output were reviewed ID: To cover with broad-spectrum antibiotics for pneumonia to send blood cultures and sputum cultures. Heme/Onc: Heparin for thromboprophylaxis. Endo: Glucose Monitored Integ/MSK: Skin Care per routine ICU Nursing Protocol to prevent ulcers. Lines: All lines examined without evidence of infection : Dispo: patient has high chance for intubation patient to to be remain in the ICU. CODE: Full Code
[2018-08-16 09:38] LABS: Bilirubin,Urine Small (Negative); Blood,Urine Negative (Negative); Clarity,Urine Clear (Clear); Color,Urine Orange (Yellow); Glucose,Urine (UA) Normal (Normal); Ketones,Urine Trace mg/dL (Negative); Leukocyte Esterase,Urine Trace (Negative); Nitrite,Urine Negative (Negative); Protein,Urine 30 mg/dL (Neg-Trace); Urobilinogen,Urine Normal (Normal)
[2018-08-16 09:42] LABS: Bacteria,Urine None Seen per hpf (None-Few); Hyaline Casts,Urine None Seen per lpf (None-Few); Squamous Epithelial Cell,Urine Many per lpf (None-Few); WBC,Urine 0-3 per hpf (0-3)
[2018-08-16] MEDS ORDERED: Vancomycin (wt based) 1,000 MG VIAL IV SCH (10:00)
[2018-08-16] MEDS ORDERED: Ringers Solution, Lactated 1,000 ML IVC ONE ×2 (11:06→14:56)
[2018-08-16] MEDS ORDERED: GuaiFENesin Liq 200 MG/10 ML UDC PO PRN (11:09)
[2018-08-16] MEDS ORDERED: Dextrose Gel 15 GM/37.5 ML TUBE PO PRN ×2 (11:28)
[2018-08-16] MEDS ORDERED: *HR* Dextrose 50 % in Water (Syg) 50 ML SYRINGE IVP PRN (11:28)
[2018-08-16] MEDS ORDERED: D5% in Water 1,000 ML IVC PRN (11:28)
[2018-08-16] MEDS: Piperacillin/Tazobactam 3.375 GM in 0.9 % Sodium Chloride Mini Bag 100 ML IVPB SCH ×2 (12:00→17:28)
[2018-08-16] MEDS: levoFLOXacin 750 MG TABLET PO SCH (12:01)
[2018-08-16] MEDS: Insulin LISPRO 300 UNITS/3 ML VIAL SQ SCH ×2 (12:02→16:04)
[2018-08-16] MEDS ORDERED: Naloxone 0.4 MG/ML INJ IVP PRN (13:48)
[2018-08-16] MEDS ORDERED: Ringers Solution, Lactated 500 ML IVC ONE (14:56)
[2018-08-16 15:56] LABS: Adenovirus Not Detected (Not Detect); Bordetella Pertussis Not Detected (Not Detect); Chlamydophila pneumoniae Not Detected (Not Detect); Coronavirus 229E Not Detected (Not Detect); Coronavirus HKU1 Not Detected (Not Detect); Coronavirus NL63 Not Detected (Not Detect); Coronavirus OC43 Not Detected (Not Detect); Human Metapneumovirus Not Detected (Not Detect); Human Rhinovirus/Enterovirus Not Detected (Not Detect); Influenza A Subtype 2009 H1 Not Detected (Not Detect); Influenza A Untypeable Not Detected (Not Detect); Influenza B Not Detected (Not Detect); Mycoplasma pneumoniae Not Detected (Not Detect); Parainfluenza Virus 1 Not Detected (Not Detect); Parainfluenza Virus 2 Not Detected (Not Detect); Parainfluenza Virus 3 Not Detected (Not Detect); Parainfluenza Virus 4 Not Detected (Not Detect); Respiratory Syncytial Virus Not Detected (Not Detect)
[2018-08-16] MEDS: hydrALAZINE 25 MG TABLET PO SCH (16:04)
[2018-08-16] MEDS: MethylPREDNISolone 40 MG/ML VIAL IVP SCH (16:04)
--- NOTE | 2018-08-16 16:32 | Sepsis Event Note ---
Sepsis Reassessment Note - Evaluation Sepsis Screen: No Definite Risk Current Stage of Sepsis: septic shock Possible Source of Sepsis: pulmonary - Focused Exam Date of Encounter: 08/16/18 Time of Encounter: 16:32 Vital Signs: Vital Signs Temp Pulse Resp BP Pulse Ox 08/16/18 16:25 20 92 08/16/18 16:07 98.1 F 08/16/18 16:00 87 20 144/83 92 08/16/18 15:00 87 22 132/80 91 08/16/18 14:00 97 22 128/74 89 08/16/18 13:00 108 22 124/69 89 08/16/18 12:02 22 89 08/16/18 12:00 93 22 119/75 88 08/16/18 11:30 84 08/16/18 11:00 98.1 F 86 22 107/77 89 08/16/18 10:02 109 17 94/58 93 08/16/18 08:27 115 20 106/55 93 08/16/18 07:22 112 24 91/51 91 08/16/18 05:20 28 88 08/16/18 05:05 105 30 114/90 85 08/16/18 05:01 24 88 08/16/18 04:50 87 Respiratory Exam: Present: wheezes Cardiovascular Exam: Present: irregulary irregular, tachycardia Capillary Refill: < 2 seconds Peripheral Pulse Strength: 3+ normal Peripheral Pulse Location: Radial Skin Exam: pale
[2018-08-16] MEDS ORDERED: LOVASTATIN 20 MG PO SCH (18:00)
[2018-08-16] MEDS: Budesonide/Formoterol 160/4.5 1 PUFF INH IH SCH (20:44)
[2018-08-16] MEDS: Fluticasone Propionate Nasal 50 MCG/SPRAY BOTTLE NS SCH (20:49)
[2018-08-16] MEDS ORDERED: Insulin LISPRO 300 UNITS/3 ML VIAL SQ SCH (21:00)
[2018-08-17] MEDS: MethylPREDNISolone 40 MG/ML VIAL IVP SCH ×4 (00:15→23:20)
[2018-08-17] MEDS: hydrALAZINE 25 MG TABLET PO SCH ×4 (00:15→21:18)
[2018-08-17] MEDS ORDERED: *HR* HYDROcodone/Acet 5/325 mg TABLET PO ONE (00:19)
[2018-08-17] MEDS ORDERED: Acetaminophen 325 MG TABLET PO PRN ×2 (00:20→14:45)
[2018-08-17] MEDS: Piperacillin/Tazobactam 3.375 GM in 0.9 % Sodium Chloride Mini Bag 100 ML IVPB SCH ×3 (02:49→17:45)
[2018-08-17] MEDS: Ipratropium/Albuterol Neb 3 ML IH SCH ×6 (03:49→23:59)
[2018-08-17 04:33] LABS: Basophils % 0.1 %; Hematocrit 32.7 % (37.5-50.1); Immature Granulocytes % 0.4 % (0-4); Lymphocytes # 0.8 K/mcL (0.6-4.6); Lymphocytes % 6.1 %; Mean Corpuscular HGB Conc 32.4 g/dL (31.6-35.5); Mean Corpuscular Hemoglobin 28.3 pg (28.0-33.3); Mean Corpuscular Volume 87.2 fL (83.0-100.0); Mean Platelet Volume 10.5 fL (9.4-12.4); Monocytes # 0.7 K/mcL (0.0-1.3); Monocytes % 4.9 %; Platelet Count 145 K/mcL (140-400); Red Blood Count 3.75 M/mcL (4.19-5.50); Red Cell Distribution Width 15.6 % (11.5-14.5); Segmented Neutrophils % 88.5 %
[2018-08-17 04:36] LABS: Hemoglobin 10.6 g/dL (12.9-16.9)
[2018-08-17 04:51] LABS: Alanine Aminotransferase 9 Units/L (7-52); Albumin 3.3 g/dL (3.5-5.7); Albumin/Globulin Ratio 1.6 (1.1-2.2); Alkaline Phosphatase 42 Units/L (34-104); Aspartate Amino Transferase 11 Units/L (13-39); BUN/Creatinine Ratio 20 (6-26); Bilirubin,Total 0.7 mg/dL (0.3-1.0); Blood Urea Nitrogen 20 mg/dL (8-23); Calcium 8.8 mg/dL (8.6-10.3); Carbon Dioxide 24 mEq/L (23-29); Chloride 107 mEq/L (98-107); Globulin 2.1 g/dL (2.4-3.5); Glucose 181 mg/dL (70-105); Osmolality,Calculated 293 (280-300); Phosphorous 2.1 mg/dL (2.7-4.5); Potassium 3.9 mEq/L (3.5-5.1); Sodium 138 mEq/L (136-145); Total Protein 5.4 g/dL (6.4-8.9); eGFR For Non-African Americans > 60 (> 60)
[2018-08-17 05:25] LABS: ABG Base Excess 1 mEq/L (-2 to 3); ABG HCO3 25 mEq/L (21-27); ABG Oxygen Saturation 94 % (95-98); ABG PCO2 37 mmHg (35-45); ABG PH 7.44 pH Units (7.32-7.45); ABG PO2 69 mmHg (85-104); ABG TCO2 27 mEq/L (20-26)
[2018-08-17] MEDS: Budesonide/Formoterol 160/4.5 1 PUFF INH IH SCH ×2 (07:43→20:05)
--- NOTE | 2018-08-17 08:28 | Pulmonology Progress Note ---
Date of Encounter: 08/17/18 Time of Encounter: 08:00 Assessment and Plan (1) Acute and chronic respiratory failure with hypoxia Current Visit: Yes Status: Acute Patient latest ABG shows hypoxic respiratory failure with not much hypercarbia we will wean down to regular high flow nasal cannula. Patient V/Q mismatch is getting better after we have been treating COPD exacerbation and multi lobar pneumonia. (2) COPD with exacerbation Current Visit: Yes Status: Acute Patient presenting with COPD exacerbation complicated by most likely bacterial pneumonia respiratory viral infection pelvis negative to continue bronchodilators, steroids and broad-spectrum antibiotics. (3) Hemoptysis Current Visit: Yes Status: Acute Patient hemoptysis secondary to most likely pneumonia and bronchitis complicated by his Eliquis use will hold off Eliquis for another 24-48 hours and he should be discharged with caution. Patient does not have any obvious endobronchial lesions in the in the CT scan. Patient refused bronchoscopy. He will need a close follow-up imaging ct chest in 4 weeks . He should follow up with [facility] in 4-6 weeks as he has some reactive mediastinal lymphadenopathy since he has previous history of lung cancer he should follow-up with us in case he needs and endobronchial ultrasound if he recovers from pneumonia but has worsening mediastinal LN . Patient is very reluctant to get any type of bronchoscopies. (4) Pneumonia Current Visit: Yes Status: Acute Patient has this severe multilobar pneumonia V/Q mismatch eventhough the Nasal MRSA swab is negative wait for sputum culture and sensitivity till that i will continue the broad-spectrum antibiotics. Qualifiers: Pneumonia type: due to unspecified organism Laterality: left Lung location: unspecified part of lung Qualified Code(s): J18.9 - Pneumonia, unspecified organism (5) Septic shock Current Visit: Yes Status: Acute Patient is hemodynamically stable lactic acidosis normalized looks like a septic shock is resolved. (6) DVT prophylaxis Current Visit: Yes Status: Acute We will put him back on DVT prophylaxis as ordered heparin subcutaneous. And will monitor for his hemoptysis Subjective Principal diagnosis: COPD exacerbation with Pneumonia Interval history: Ventilator and continue the patient today patient has having less work of breathing denies any coughing of blood overnight is eating he is off oxygen and saturating 85% and is not tachypneic and is completely conscious oriented. Patient denies any chest pain or chest tightness denies any headache denies any other evidence of focal neurological deficit [facility] with COPD exacerbation complicated by hemoptysis. Objective PUL Vital signs: Last Vital Signs Temp 97.3 F L 08/17/18 03:46 Pulse 96 08/17/18 06:00 Resp 18 08/17/18 07:45 BP 124/72 08/17/18 06:00 Pulse Ox 91 08/17/18 07:45 Auscultation: bilateral: diminished breath sounds, wheezes (some scattered wheezes ), rhonchi (scattered rhonchi ) Cardiovascular: irregular rhythm Results - Laboratory Findings CBC and BMP: 08/17/18 04:15 08/17/18 04:15 ABG ABG pH 7.44 pH Units (7.32-7.45) 08/17/18 05:22 ABG pCO2 37 mmHg (35-45) 08/17/18 05:22 ABG pO2 69 mmHg (85-104) L 08/17/18 05:22 ABG O2 Saturation 94 % (95-98) L 08/17/18 05:22 PT/INR, D-dimer PT 17.0 Seconds (9.4-12.1) H 08/16/18 05:16 Abnormal lab findings: Abnormal lab results WBC 13.5 K/mcL (4.3-11.1) H 08/17/18 04:15 RBC 3.75 M/mcL (4.19-5.50) L 08/17/18 04:15 Hgb 10.6 g/dL (12.9-16.9) L D 08/17/18 04:15 Hct 32.7 % (37.5-50.1) L 08/17/18 04:15 RDW 15.6 % (11.5-14.5) H 08/17/18 04:15 Neutrophils # 12.0 K/mcL (1.6-8.9) H 08/17/18 04:15 PT 17.0 Seconds (9.4-12.1) H 08/16/18 05:16 ABG pO2 69 mmHg (85-104) L 08/17/18 05:22 ABG Total CO2 27 mEq/L (20-26) H 08/17/18 05:22 ABG O2 Saturation 94 % (95-98) L 08/17/18 05:22 Glucose 181 mg/dL (70-105) H 08/17/18 04:15 POC Glucose 165 mg/dL (70-99) H 08/17/18 07:43 Phosphorus 2.1 mg/dL (2.7-4.5) L 08/17/18 04:15 Direct Bilirubin 0.3 mg/dL (0.0-0.2) H 08/16/18 05:16 AST 11 Units/L (13-39) L 08/17/18 04:15 Serum Total Protein 5.4 g/dL (6.4-8.9) L 08/17/18 04:15 Albumin 3.3 g/dL (3.5-5.7) L 08/17/18 04:15 Globulin 2.1 g/dL (2.4-3.5) L 08/17/18 04:15 Urine Color [place] (Yellow) A 08/16/18 09:11 Ur Specific [place] 1.030 (1.010-1.025) H 08/16/18 09:11 Urine Protein 30 mg/dL (Neg-Trace) H 08/16/18 09:11 Urine Ketones Trace mg/dL (Negative) H 08/16/18 09:11 Urine Bilirubin Small (Negative) H 08/16/18 09:11 Ur Leukocyte Esterase Trace (Negative) H 08/16/18 09:11 Ur Squamous Epith Cells Many per lpf (None-Few) H 08/16/18 09:11 Ur Culture Indicated? NO. (NO) A 08/16/18 09:11 - Microbiology Findings Microbiology Findings: Microbiology, Last 48 Hours 08/16/18 16:00 Sputum Culture - Preliminary Sputum 08/16/18 09:10 Legionella Antigen - Final Urine,Clean Catch Streptococcus pneumoniae Antigen (M - Final 08/16/18 05:59 Blood Culture - Preliminary Peripheral Venipuncture Culture is incubating and being continuously monitored for growth. Final report to follow. 08/16/18 05:16 Blood Culture - Preliminary Peripheral Venipuncture Culture is incubating and being continuously monitored for growth. Final report to follow. - Clinical Findings Intake & Output: Intake & Output 08/16/18 08/17/18 08/17/18 23:59 07:59 15:59 Intake Total 1960 / 1960 500 / 500 Output Total 400 / 400 300 / 300 Balance 1560 / 1560 200 / 200 Weight 120.7 kg Consult Discharge Plan - Plan [facility]Primary Care Provider[facility] -
[2018-08-17] MEDS: *HR* Metoprolol 5 MG/5 ML VIAL IVP SCH ×4 (08:45→21:19)
[2018-08-17] MEDS: levoFLOXacin 750 MG TABLET PO SCH (08:45)
[2018-08-17] MEDS: Fluticasone Propionate Nasal 50 MCG/SPRAY BOTTLE NS SCH ×2 (08:47→21:20)
[2018-08-17] MEDS: Insulin LISPRO 300 UNITS/3 ML VIAL SQ SCH ×4 (08:48→21:20)
[2018-08-17] MEDS: *HR* Heparin 5,000 UNIT/ML VIAL SQ SCH ×3 (08:51→21:21)
[2018-08-17] MEDS ORDERED: Spironolactone 25 MG TABLET PO SCH (09:00)
[2018-08-17] MEDS ORDERED: Cholecalciferol (D-3) 1,000 UNIT TABLET PO SCH (09:00)
[2018-08-17] MEDS ORDERED: amLODIPine 5 MG TABLET PO SCH (09:00)
[2018-08-17] MEDS ORDERED: Aspirin Enteric Coated 81 MG Tablet PO SCH (09:00)
[2018-08-17] MEDS ORDERED: Furosemide 40 MG TABLET PO SCH (09:00)
[2018-08-17] MEDS ORDERED: Metoprolol XL (24 HR) Succ 50 MG TAB.ER.24H PO SCH (09:00)
[2018-08-17] MEDS ORDERED: cefTRIAXone 2,000 MG in Water for inj. (sterile) 20 ML 20 ML IVP SCH (09:00)
[2018-08-17] MEDS ORDERED: Dextrose Gel 15 GM/37.5 ML TUBE PO PRN ×2 (14:45)
[2018-08-17] MEDS ORDERED: GuaiFENesin Liq 200 MG/10 ML UDC PO PRN (14:45)
[2018-08-17] MEDS ORDERED: Naloxone 0.4 MG/ML INJ IVP PRN (14:45)
[2018-08-17] MEDS ORDERED: *HR* Dextrose 50 % in Water (Syg) 50 ML SYRINGE IVP PRN (14:45)
[2018-08-17] MEDS ORDERED: D5% in Water 1,000 ML IVC PRN (14:45)
--- NOTE | 2018-08-17 18:57 | Electrocardiograph Report ---
[place] [facility] Test Date: 2018-08-16 Pat Name: Tye Victoria Department: EXAM1 Room: E33 Gender: M Block Trimmer: : [id number] Requested By: Gonzalo Wahl Order Number: [id number] Reading MD: Julianna Prieto Measurements Intervals [place] Rate: 118 P: HI: QRS: -5 QRSD: 94 T: 21 QT: 344 QTc: 476 Interpretive Statements Atrial fibrillation Borderline T wave abnormalities Borderline prolonged QT interval Electronically Signed On 08-17-2018 18:56:03 EST by Julianna Prieto
[2018-08-17 21:59] LABS: Hematocrit 33.7 % (37.5-50.1)
[2018-08-17] MEDS: *HR* HYDROcodone/Acet 5/325 mg TABLET PO PRN (22:07)
[2018-08-18] MEDS: Piperacillin/Tazobactam 3.375 GM in 0.9 % Sodium Chloride Mini Bag 100 ML IVPB SCH ×3 (02:39→17:00)
[2018-08-18 02:52] LABS: Basophils % 0.1 %; Hematocrit 35.5 % (37.5-50.1); Hemoglobin 11.3 g/dL (12.9-16.9); Immature Granulocytes % 0.9 % (0-4); Immature Platelets 4.6 % (1.1-6.1); Lymphocytes # 0.6 K/mcL (0.6-4.6); Lymphocytes % 4.7 %; Mean Corpuscular HGB Conc 31.8 g/dL (31.6-35.5); Mean Corpuscular Volume 88.1 fL (83.0-100.0); Mean Platelet Volume 10.8 fL (9.4-12.4); Monocytes # 0.4 K/mcL (0.0-1.3); Monocytes % 3.1 %; Neutrophils # 12.5 K/mcL (1.6-8.9); Platelet Count 189 K/mcL (140-400); Red Blood Count 4.03 M/mcL (4.19-5.50); Red Cell Distribution Width 15.7 % (11.5-14.5); Segmented Neutrophils % 91.2 %
[2018-08-18] MEDS: *HR* Metoprolol 5 MG/5 ML VIAL IVP SCH ×4 (03:05→20:44)
[2018-08-18 03:28] LABS: Alanine Aminotransferase 14 Units/L (7-52); Albumin 3.3 g/dL (3.5-5.7); Albumin/Globulin Ratio 1.1 (1.1-2.2); Alkaline Phosphatase 48 Units/L (34-104); Aspartate Amino Transferase 15 Units/L (13-39); BUN/Creatinine Ratio 24 (6-26); Bilirubin,Total 0.6 mg/dL (0.3-1.0); Blood Urea Nitrogen 28 mg/dL (8-23); Calcium 8.6 mg/dL (8.6-10.3); Carbon Dioxide 25 mEq/L (23-29); Chloride 106 mEq/L (98-107); Globulin 3.1 g/dL (2.4-3.5); Glucose 179 mg/dL (70-105); Osmolality,Calculated 300 (280-300); Potassium 3.9 mEq/L (3.5-5.1); Sodium 140 mEq/L (136-145); Total Protein 6.4 g/dL (6.4-8.9); eGFR For Non-African Americans > 60 (> 60)
[2018-08-18] MEDS: Ipratropium/Albuterol Neb 3 ML IH SCH ×6 (03:47→23:14)
[2018-08-18] MEDS: *HR* Heparin 5,000 UNIT/ML VIAL SQ SCH ×3 (05:25→20:45)
[2018-08-18] MEDS: Budesonide/Formoterol 160/4.5 1 PUFF INH IH SCH ×2 (07:45→19:35)
[2018-08-18] MEDS ORDERED: levoFLOXacin 750 MG TABLET PO SCH (09:00)
[2018-08-18] MEDS: Cholecalciferol (D-3) 1,000 UNIT TABLET PO SCH (09:16)
[2018-08-18] MEDS: Aspirin Enteric Coated 81 MG Tablet PO SCH (09:16)
[2018-08-18] MEDS: Furosemide 40 MG TABLET PO SCH (09:16)
[2018-08-18] MEDS: Spironolactone 25 MG TABLET PO SCH (09:17)
[2018-08-18] MEDS: hydrALAZINE 25 MG TABLET PO SCH ×3 (09:17→20:44)
[2018-08-18] MEDS: MethylPREDNISolone 40 MG/ML VIAL IVP SCH ×2 (09:18→15:12)
[2018-08-18] MEDS: Fluticasone Propionate Nasal 50 MCG/SPRAY BOTTLE NS SCH ×2 (09:18→20:58)
[2018-08-18] MEDS: Insulin LISPRO 300 UNITS/3 ML VIAL SQ SCH ×3 (09:19→17:16)
[2018-08-18 10:23] LABS: Hematocrit 33.7 % (37.5-50.1); Hemoglobin 10.8 g/dL (12.9-16.9)
--- NOTE | 2018-08-18 11:51 | Internal Med Progress Note ---
Hospitalist Progress Note - Encounter Date of Encounter: 08/18/18 Time of Encounter: 07:30 - Subjective Interval History: chyna was seen and examined at bedside reports that he feelsmuch better than he did from admission. still coughig up blood at times but denies clots and reports that the amount has significantly decreased as compared to admission. He denies chest pain, palpitations, abdominal pain, nausea, vomiting, or change in stools. his breathing is well with the high flow nasal cannula. has no complaints, tolerated diet no overnight events - Exam Vitals: Temp Pulse Resp BP Pulse Ox 97.8 F 96 18 130/82 91 08/18/18 10:57 08/18/18 10:57 08/18/18 10:57 08/18/18 10:57 08/18/18 10:57 Exam: General: Patient is alert, oriented, no acute distress, obese speaks in full sentences, sitting up in bed on high flow nasal cannula Head: atraumatic, normocephalic, Eye: normal appearance, PERRL, no scleral icterus, no conjunctival injection ENT: mucous membranes moist, normal external ear exam Neck: normal inspection, trachea midline, full ROM, no carotid bruits Chest: normal inspection, symmetric chest rise Respiratory: Decreased breath sounds bilaterally, crackles the posterior lung field, no wheezing Cardiovascular: Irregular, s1 and s2 No clicks, rubs, gallops, or murmors. Abdomen: Bowel sounds present normoactive x-4 quadrants. Abdomen is soft, nondistended. no Epigastric tenderness. No guarding or rebound. No organomegaly noted, obese musculoskeletal: Spontaneously moving all extremities. no edema, no calf tenderness Skin: warm, dry, intact. Neuro: Alert and oriented x4. Sensation light touch intact. Cranial nerves 2- 12 is intact. Not aphasic, gait is steady, rapid hand movements intact, [id number] intact, Psych: Patient's affect is normal - Assessment and Plan (1) Acute and chronic respiratory failure with hypoxia Current Visit: Yes Status: Acute Assessment and Plan: Was started on high flow nasal cannula will continue and gradually titrate off to nasal cannula Continuous pulse ox Vitals as per protocol We will continue inhalers as scheduled (2) COPD with exacerbation Current Visit: Yes Status: Acute Assessment and Plan: Continue Solu-Medrol 40 mg every 8 hours and titrate Continue DuoNeb's and inhalers Will discontinue Levaquin as the urine antigens are negative Continue vancomycin and Zosyn de-escalate as per cultures Pulmonology on board recommendations appreciated (3) Hemoptysis Current Visit: Yes Status: Acute Assessment and Plan: Patient hemoptysis secondary to most likely pneumonia and bronchitis complicated by his Eliquis use will hold off Eliquis for another 24 hours ( as recommended by pulmonology) still has hemoptysis however it has decreased significantly as per patient Continue to monitor H&H Patient refused bronchoscopy. He will need a close follow-up imaging ct chest in 4 weeks pulmonology on board "He should follow up with [facility] in 4-6 weeks as he has some reactive mediastinal lymphadenopathy since he has previous history of lung cancer he should follow-up with us in case he needs and endobronchial ultrasound if he recovers from pneumonia but has worsening mediastinal LN" consider restarting eliquis in the AM if H/H stable patient understands the risk and benefits of stopping eliquis and he is in agreement continue to hold eliquis and to possibly restart if his hemoptysis resolves and h/H remains stable (4) Pneumonia Current Visit: Yes Status: Acute Assessment and Plan: Multifocal pneumonia L>R Was started on vancomycin and Zosyn and Levaquin Levaquin discontinued on 08/18 as urine antigens are negative Continue with vancomycin and Zosyn Respiratory viral cultures negative MRSA screen negative Pulmonology is on board will follow recommendations Patient refused bronchoscopy. He will need a close follow-up imaging ct chest in 4 weeks . IMPRESSION: 1. Extensive new consolidative opacities in the left upper and left lower lobes with less prominent in the base of the right upper lobe, most likely pneumonia. Underlying pleural metastatic disease is not excluded. 2. Questionable central airway secretions with minimal bronchial wall thickening, potentially bronchitis or aspiration. 3. New nodular areas of consolidative opacity in the base of the medial basilar segment of the right upper lobe could be related to the above process but could also represent atelectasis, scarring, or metastatic disease. Of note, this is adjacent to unchanged suspected scarring in the right lower lobe near a previously seen hypermetabolic nodule. 4. New focal nodular right pleural thickening suspected to represent metastatic disease with invasion of the adjacent posterolateral right 9th rib, resulting in a nondisplaced pathologic fracture. 5. Increased size of a few mildly to moderately enlarged mediastinal lymph nodes. Considerations include reactive change or metastatic disease. Recommend attention on follow-up imaging. (5) Septic shock Current Visit: Yes Status: Acute Assessment and Plan: Fever of 101.4 on admission Tachycardic at 115 Lactic acidosis 2.4-2.7-4.5-3.9-1.3 - resolved Most likely secondary to multifocal pneumonia Continue antibiotics as above Cultures no growth today Follow sputum cultures (6) Obesity (BMI 35.0-39.9 without comorbidity) Current Visit: Yes Status: Acute Assessment and Plan: BMI 38.4 nutrition consult (7) DVT prophylaxis Current Visit: Yes Status: Acute Assessment and Plan: On heparin subcutaneous as Eliquis is on hold secondary to hemoptysis - Time Spent with Patient Total time spent is greater than 50% in coordination of care (as documented) at patient's floor/unit and/or counseling patient: Internal Medicine: Result - Labs CBC & Chem 7: 08/18/18 10:08 08/18/18 02:30 Labs: Short CBC 08/17/18 08/18/18 08/18/18 Range/Units 21:50 02:50 10:08 WBC 13.7 H (4.3-11.1) K/mcL Hgb 11.0 L 11.3 L 10.8 L (12.9-16.9) g/dL Hct 33.7 L 35.5 L 33.7 L (37.5-50.1) % Plt Count 189 (140-400) K/mcL Neutrophils # 12.5 H (1.6-8.9) K/mcL BMP 08/18/18 02:30 Sodium 140 Potassium 3.9 Chloride 106 Carbon Dioxide 25 BUN 28 H Creatinine 1.16 Glucose 179 H Calcium 8.6 Liver Function 08/18/18 Range/Units 02:30 Total Bilirubin 0.6 (0.3-1.0) mg/dL AST 15 (13-39) Units/L ALT 14 (7-52) Units/L Alkaline Phosphatase 48 (34-104) Units/L Albumin 3.3 L (3.5-5.7) g/dL - ABG Interpretation ABG results: ABG ABG pH 7.44 pH Units (7.32-7.45) 08/17/18 05:22 ABG pCO2 37 mmHg (35-45) 08/17/18 05:22 ABG pO2 69 mmHg (85-104) L 08/17/18 05:22 ABG O2 Saturation 94 % (95-98) L 08/17/18 05:22 PT/INR, D-dimer PT 17.0 Seconds (9.4-12.1) H 08/16/18 05:16 Consult Discharge Plan - Plan [facility]errals: [facility] [Primary Care Provider] - (4) Pneumonia Qualifiers: Pneumonia type: due to unspecified organism Laterality: left Lung location: unspecified part of lung Qualified Code(s): J18.9 - Pneumonia, unspecified organism
[2018-08-18] MEDS: *HR* HYDROcodone/Acet 5/325 mg TABLET PO PRN (20:44)
[2018-08-19] MEDS: Insulin LISPRO 300 UNITS/3 ML VIAL SQ SCH ×5 (01:01→21:48)
[2018-08-19] MEDS: Piperacillin/Tazobactam 3.375 GM in 0.9 % Sodium Chloride Mini Bag 100 ML IVPB SCH ×3 (01:02→17:35)
[2018-08-19] MEDS: MethylPREDNISolone 40 MG/ML VIAL IVP SCH ×3 (01:03→16:11)
[2018-08-19] MEDS: *HR* Metoprolol 5 MG/5 ML VIAL IVP SCH ×4 (03:35→21:48)
[2018-08-19 03:53] LABS: Basophils % 0.2 %; Hematocrit 34.1 % (37.5-50.1); Immature Granulocytes % 1.4 % (0-4); Lymphocytes # 0.6 K/mcL (0.6-4.6); Lymphocytes % 5.1 %; Mean Corpuscular HGB Conc 32.3 g/dL (31.6-35.5); Mean Corpuscular Hemoglobin 27.8 pg (28.0-33.3); Mean Corpuscular Volume 86.1 fL (83.0-100.0); Mean Platelet Volume 10.4 fL (9.4-12.4); Monocytes # 0.4 K/mcL (0.0-1.3); Monocytes % 3.9 %; Neutrophils # 9.9 K/mcL (1.6-8.9); Platelet Count 192 K/mcL (140-400); Red Blood Count 3.96 M/mcL (4.19-5.50); Red Cell Distribution Width 15.6 % (11.5-14.5); Segmented Neutrophils % 89.4 %
[2018-08-19 04:13] LABS: Alanine Aminotransferase 24 Units/L (7-52); Albumin 3.3 g/dL (3.5-5.7); Albumin/Globulin Ratio 1.2 (1.1-2.2); Alkaline Phosphatase 44 Units/L (34-104); Aspartate Amino Transferase 19 Units/L (13-39); BUN/Creatinine Ratio 25 (6-26); Bilirubin,Total 0.7 mg/dL (0.3-1.0); Blood Urea Nitrogen 26 mg/dL (8-23); Calcium 8.5 mg/dL (8.6-10.3); Carbon Dioxide 26 mEq/L (23-29); Chloride 105 mEq/L (98-107); Globulin 2.7 g/dL (2.4-3.5); Glucose 179 mg/dL (70-105); Osmolality,Calculated 299 (280-300); Potassium 3.4 mEq/L (3.5-5.1); Sodium 140 mEq/L (136-145); eGFR For Non-African Americans > 60 (> 60)
[2018-08-19] MEDS: Ipratropium/Albuterol Neb 3 ML IH SCH ×6 (04:35→23:46)
[2018-08-19] MEDS: *HR* Heparin 5,000 UNIT/ML VIAL SQ SCH (05:12)
[2018-08-19] MEDS: Budesonide/Formoterol 160/4.5 1 PUFF INH IH SCH ×2 (07:27→20:45)
[2018-08-19] MEDS: Furosemide 40 MG TABLET PO SCH (08:18)
[2018-08-19] MEDS: Cholecalciferol (D-3) 1,000 UNIT TABLET PO SCH (08:19)
[2018-08-19] MEDS: Aspirin Enteric Coated 81 MG Tablet PO SCH (08:19)
[2018-08-19] MEDS: hydrALAZINE 25 MG TABLET PO SCH ×3 (08:19→21:47)
[2018-08-19] MEDS: Spironolactone 25 MG TABLET PO SCH (08:20)
[2018-08-19] MEDS: Fluticasone Propionate Nasal 50 MCG/SPRAY BOTTLE NS SCH ×2 (08:22→21:49)
[2018-08-19] MEDS ORDERED: Ipratropium 1 PUFF INHALER IH PRN (11:24)
--- NOTE | 2018-08-19 11:24 | Internal Med Progress Note ---
Hospitalist Progress Note - Encounter Date of Encounter: 08/19/18 Time of Encounter: 11:21 - Subjective Interval History: Mr. Victoria is a 77M with PMH of COPD on 3lpm O2 at home, CHF, afib on Eliquis, and CAD. He presented to the ED today complaining of increased cough and hemoptysis. States the increase in cough began approximately 2 days ago and has been accompanied by increased shortness of breath. States his home oxygen and nebulizers have not been helping. He does admit to some accompanying fever, chills, and diaphoresis. Denies any chest pain, headaches, numbness, or tingling. The hemoptysis began this morning and has been blood tinged sputum rather than mykel blood loss. He does state that he cracked a rib during a fall 6 months ago, but has not experienced complications at this time. He denies any other injuries, no recent hospitalizations, no recent abx or steroid use. He denies any abdominal pain, nausea, vomiting, or change in stools. patient was admitted for hemoptysis, pneumonia and hypoxic hypercapnic respiratory failure hemoptysis resolved, will restart eliquis Pneumonia, with negative sputum culture, leginella strep are negative. will d/c vancomycin, continue zosyn significant fluid overload--- will start IV lasix, he was on oral lasix 80 mg at home weaning O2 as able - Exam Vitals: Temp Pulse Resp BP Pulse Ox 97.3 F L 102 20 139/84 92 08/19/18 08:22 08/19/18 08:22 08/19/18 08:22 08/19/18 08:22 08/19/18 08:22 Exam: General: Patient is alert, oriented, no acute distress, obese speaks in full sentences, sitting up in bed on high flow nasal cannula Head: atraumatic, normocephalic, Eye: normal appearance, PERRL, no scleral icterus, no conjunctival injection ENT: mucous membranes moist, normal external ear exam Neck: normal inspection, trachea midline, full ROM, no carotid bruits Chest: normal inspection, symmetric chest rise Respiratory: Decreased breath sounds bilaterally, crackles the posterior lung field, no wheezing Cardiovascular: Irregular, s1 and s2 No clicks, rubs, gallops, or murmors. Abdomen: Bowel sounds present normoactive x-4 quadrants. Abdomen is soft, nondistended. no Epigastric tenderness. No guarding or rebound. No organomegaly noted, obese musculoskeletal: Spontaneously moving all extremities. +++ edema, no calf tenderness Skin: warm, dry, intact. Neuro: Alert and oriented x4. Sensation light touch intact. Cranial nerves 2- 12 is intact. Not aphasic, gait is steady, rapid hand movements intact, [id number] intact, Psych: Patient's affect is normal - Assessment and Plan (1) Acute and chronic respiratory failure with hypoxia Current Visit: Yes Status: Acute Assessment and Plan: Was started on high flow nasal cannula will continue and gradually titrate off to nasal cannula Continuous pulse ox Vitals as per protocol We will continue inhalers as scheduled patient was on 3 L NC at night, no CPAP, had no sleep study done before weaning O2 add incentive spirometery IV lasix (2) Hemoptysis Current Visit: Yes Status: Acute Assessment and Plan: from pneumonia and eliquis, resolved will restart eliquis (3) Severe sepsis Current Visit: Yes Status: Acute Assessment and Plan: from pneumonia, resolved, continue zosyn (4) Pneumonia Current Visit: Yes Status: Acute Assessment and Plan: negative leginella, strep, sputum culture negative d/c vanmcomycin, continue zosyn (5) COPD with exacerbation Current Visit: Yes Status: Acute Assessment and Plan: steroids and nebs (6) Diastolic CHF Current Visit: Yes Status: Acute Assessment and Plan: patient was on oral lasix at home, he has signikficant leg swelling, will change to iV lasix (7) Obesity (BMI 35.0-39.9 without comorbidity) Current Visit: Yes Status: Acute (8) DVT prophylaxis Current Visit: Yes Status: Acute Assessment and Plan: on eliquis - Time Spent with Patient Total time spent is greater than 50% in coordination of care (as documented) at patient's floor/unit and/or counseling patient: Internal Medicine: Result - Labs CBC & Chem 7: 08/19/18 03:30 08/19/18 03:30 Labs: Short CBC 08/19/18 Range/Units 03:30 WBC 11.1 (4.3-11.1) K/mcL Hgb 11.0 L (12.9-16.9) g/dL Hct 34.1 L (37.5-50.1) % Plt Count 192 (140-400) K/mcL Neutrophils # 9.9 H (1.6-8.9) K/mcL BMP 08/19/18 03:30 Sodium 140 Potassium 3.4 L Chloride 105 Carbon Dioxide 26 BUN 26 H Creatinine 1.05 Glucose 179 H Calcium 8.5 L Liver Function 08/19/18 Range/Units 03:30 Total Bilirubin 0.7 (0.3-1.0) mg/dL AST 19 (13-39) Units/L ALT 24 (7-52) Units/L Alkaline Phosphatase 44 (34-104) Units/L Albumin 3.3 L (3.5-5.7) g/dL - ABG Interpretation ABG results: ABG ABG pH 7.44 pH Units (7.32-7.45) 08/17/18 05:22 ABG pCO2 37 mmHg (35-45) 08/17/18 05:22 ABG pO2 69 mmHg (85-104) L 08/17/18 05:22 ABG O2 Saturation 94 % (95-98) L 08/17/18 05:22 PT/INR, D-dimer PT 17.0 Seconds (9.4-12.1) H 08/16/18 05:16 Consult Discharge Plan - Plan [facility]errals: [facility] [Primary Care Provider] - __ (4) Pneumonia Qualifiers: Pneumonia type: due to unspecified organism Laterality: left Lung location: unspecified part of lung Qualified Code(s): J18.9 - Pneumonia, unspecified organism
[2018-08-19] MEDS: Furosemide 40 MG/4 ML VIAL IVP SCH ×2 (12:05→21:48)
[2018-08-19] MEDS: Apixaban 5 MG TABLET PO SCH ×2 (12:05→21:47)
[2018-08-19] MEDS ORDERED: Aminoglycoside Consult 1 EACH MC ONE (14:24)
[2018-08-19] MEDS: *HR* HYDROcodone/Acet 5/325 mg TABLET PO PRN (17:35)
[2018-08-20] MEDS: *HR* HYDROcodone/Acet 5/325 mg TABLET PO PRN ×2 (00:32→16:53)
[2018-08-20] MEDS: MethylPREDNISolone 40 MG/ML VIAL IVP SCH ×3 (00:32→15:09)
[2018-08-20] MEDS: Ipratropium/Albuterol Neb 3 ML IH SCH ×6 (03:38→23:16)
[2018-08-20] MEDS: *HR* Metoprolol 5 MG/5 ML VIAL IVP SCH ×4 (03:47→21:56)
[2018-08-20] MEDS: Piperacillin/Tazobactam 3.375 GM in 0.9 % Sodium Chloride Mini Bag 100 ML IVPB SCH ×3 (03:47→16:48)
[2018-08-20 04:13] LABS: Basophils # 0.1 K/mcL (0.0-0.2); Basophils % 0.6 %; Hematocrit 33.5 % (37.5-50.1); Hemoglobin 10.9 g/dL (12.9-16.9); Immature Granulocytes % 3.7 % (0-4); Lymphocytes # 0.8 K/mcL (0.6-4.6); Lymphocytes % 5.6 %; Mean Corpuscular HGB Conc 32.5 g/dL (31.6-35.5); Mean Corpuscular Hemoglobin 28.2 pg (28.0-33.3); Mean Corpuscular Volume 86.6 fL (83.0-100.0); Mean Platelet Volume 10.5 fL (9.4-12.4); Monocytes # 0.7 K/mcL (0.0-1.3); Neutrophils # 11.6 K/mcL (1.6-8.9); Platelet Count 192 K/mcL (140-400); Red Blood Count 3.87 M/mcL (4.19-5.50); Red Cell Distribution Width 15.6 % (11.5-14.5); Segmented Neutrophils % 85.1 %
[2018-08-20 04:31] LABS: Alanine Aminotransferase 23 Units/L (7-52); Albumin 3.3 g/dL (3.5-5.7); Albumin/Globulin Ratio 1.3 (1.1-2.2); Alkaline Phosphatase 43 Units/L (34-104); Aspartate Amino Transferase 13 Units/L (13-39); BUN/Creatinine Ratio 21 (6-26); Bilirubin,Total 0.7 mg/dL (0.3-1.0); Blood Urea Nitrogen 26 mg/dL (8-23); Calcium 8.4 mg/dL (8.6-10.3); Carbon Dioxide 29 mEq/L (23-29); Chloride 101 mEq/L (98-107); Globulin 2.6 g/dL (2.4-3.5); Glucose 169 mg/dL (70-105); Osmolality,Calculated 299 (280-300); Potassium 3.6 mEq/L (3.5-5.1); Sodium 140 mEq/L (136-145); Total Protein 5.9 g/dL (6.4-8.9); eGFR For Non-African Americans 58 (> 60)
[2018-08-20] MEDS: Budesonide/Formoterol 160/4.5 1 PUFF INH IH SCH ×2 (07:31→20:05)
[2018-08-20] MEDS: Fluticasone Propionate Nasal 50 MCG/SPRAY BOTTLE NS SCH ×2 (07:52→21:56)
[2018-08-20] MEDS: Insulin LISPRO 300 UNITS/3 ML VIAL SQ SCH ×4 (07:52→21:57)
[2018-08-20] MEDS: Furosemide 40 MG/4 ML VIAL IVP SCH ×2 (07:54→21:57)
[2018-08-20] MEDS: Cholecalciferol (D-3) 1,000 UNIT TABLET PO SCH (07:55)
[2018-08-20] MEDS: Aspirin Enteric Coated 81 MG Tablet PO SCH (07:55)
[2018-08-20] MEDS: Apixaban 5 MG TABLET PO SCH ×2 (07:55→21:56)
[2018-08-20] MEDS: Spironolactone 25 MG TABLET PO SCH (07:56)
[2018-08-20] MEDS: hydrALAZINE 25 MG TABLET PO SCH ×3 (07:56→21:56)
--- NOTE | 2018-08-20 08:16 | Internal Med Progress Note ---
<GiraldoCorey Deniz - Last Filed: 08/20/18 11:37> Hospitalist Progress Note - Encounter Date of Encounter: 08/20/18 Time of Encounter: 08:00 - Subjective Interval History: Sitting on edge of bread on hiflow eating breakfast. Says he is breathing better today after lasix started yst. No further hemoptysis. Cough resolved. Denies subjective fever/chills, blurry vision, dipolpia, dizzy/lightheadedness, chest pain, pleuritic chest pain, abdominal pain, N/V, or pre/syncope. - Exam Vitals: Temp Pulse Resp BP Pulse Ox 97.9 F 83 20 123/70 93 08/20/18 07:22 08/20/18 07:22 08/20/18 07:35 08/20/18 07:22 08/20/18 08:13 Exam: General: Awake, alert, no acute distress, signs of toxicity, sitting on edge of bed on high flow nasal cannula Head: Atraumatic, normocephalic, Eye: Normal appearance, pupils equal and round, EOMi, no scleral icterus, no conjunctival injection ENT: Mucous membranes moist Neck: Normal inspection, trachea midline, full ROM Chest: Symmetric chest rise, non tender to palpation Respiratory: Normal resp effort, increased exp phase, decreased breath sounds bilaterally, crackles L base, wheezing R base Cardiovascular: Tachycardic, irregular rhythm, S1/S2+, no murmurs, rubs, gallops, radial pulse 2+ bilat, 2+ edema Abdomen: Soft, nontender, nondistended, no guarding, rebound, or organomegaly Musculoskeletal: Spontaneously moving all extremities, no calf tenderness Skin: Warm, dry, intact. Neuro: Cranial nerves 2-12 grossly intact, no focal deficits Psych: Normal affect - Assessment and Plan (1) Acute and chronic respiratory failure with hypoxia Current Visit: Yes Status: Acute Assessment and Plan: -ABG hypoxic resp failure without hypercarbia on arrival -On high flow O2 -Continue steroid (day 5) -Continue scheduled duonebs -Wean from high flow to nc as tolerated today -Resp status improving as multilobar pneumonia being treated (2) Pneumonia Current Visit: Yes Status: Acute Assessment and Plan: -Multilobar pneumonia -CT chest 08/16/18 with 1. Extensive new consolidative opacities in the left upper and left lower lobes with less prominent in the base of the right upper lobe, most likely pneumonia. Underlying pleural metastatic disease is not excluded. 2. Questionable central airway secretions with minimal bronchial wall thickening, potentially bronchitis or aspiration. 3. New nodular areas of consolidative opacity in the base of the medial basilar segment of the right upper lobe could be related to the above process but could also represent atelectasis, scarring, or metastatic disease. Of note, this is adjacent to unchanged suspected scarring in the right lower lobe near a previously seen hypermetabolic nodule. 4. New focal nodular right pleural thickening suspected to represent metastatic disease with invasion of the adjacent posterolateral right 9th rib, resulting in a nondisplaced pathologic fracture. 5. Increased size of a few mildly to moderately enlarged mediastinal lymph nodes. Considerations include reactive change or metastatic disease. Recommend attention on follow-up imaging. -Received 4 days vanc (stopped 08/19/18) -Continue zosyn (day 5) -MRSA neg -BC x2 drawn 08/16/18 ngtd -Resp PCR neg -Sputum culture, legionella, and s pneumo antigen neg -WBC 13.6, afebrile, tachycardic -Pulm following 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 prior lung cancer -No further hemoptysis (4) COPD with exacerbation Current Visit: Yes Status: Acute Assessment and Plan: -Exacerbation complicated with multilobar pneumonia -Continue bronchodilators and steroids -Received 4 days vanc and now 5 days zosyn for pneumonia (5) Diastolic CHF Current Visit: Yes Status: Chronic Assessment and Plan: -Chronic diastolic HF -Fluid overloaded after IVF resuscitation with sepsis -IV lasix started 08/19/18 (6) Severe sepsis Current Visit: Yes Status: Acute Assessment and Plan: -Tachypnic, tachycardic, febrile, with multilobar pneumonia at admission -Started on empiric vanc, zosyn, levofloxacin -On zosyn now (day 5) -Lactic 2.4 on arrival, high of 4.5, normalized 08/17/18 -Received 3.5L IVF day of admission -Fluid overloaded 08/19/18 and IV lasix started -BCx2 drawn 08/16/18 ngtd -WBC 13.6 today, afebrile (7) Obesity (BMI 35.0-39.9 without comorbidity) Current Visit: Yes Status: Acute Assessment and Plan: -Recommend lifestyle modifications at dc (8) Afib Current Visit: Yes Status: Chronic Assessment and Plan: -Rate controlled at home with metoprolol, anticoagulated with apixaban -Afib currently DVT Prophylaxis: Apixaban - Time Spent with Patient Total time spent is greater than 50% in coordination of care (as documented) at patient's floor/unit and/or counseling patient: less than 15 minutes Plan of Care Discussed with: patient Internal Medicine: Result - Labs CBC & Chem 7: 08/20/18 03:55 08/20/18 03:55 Labs: Short CBC 08/20/18 Range/Units 03:55 WBC 13.6 H (4.3-11.1) K/mcL Hgb 10.9 L (12.9-16.9) g/dL Hct 33.5 L (37.5-50.1) % Plt Count 192 (140-400) K/mcL Neutrophils # 11.6 H (1.6-8.9) K/mcL BMP 08/20/18 03:55 Sodium 140 Potassium 3.6 Chloride 101 Carbon Dioxide 29 BUN 26 H Creatinine 1.21 Glucose 169 H Calcium 8.4 L Liver Function 08/20/18 Range/Units 03:55 Total Bilirubin 0.7 (0.3-1.0) mg/dL AST 13 (13-39) Units/L ALT 23 (7-52) Units/L Alkaline Phosphatase 43 (34-104) Units/L Albumin 3.3 L (3.5-5.7) g/dL - ABG Interpretation ABG results: ABG ABG pH 7.44 pH Units (7.32-7.45) 08/17/18 05:22 ABG pCO2 37 mmHg (35-45) 08/17/18 05:22 ABG pO2 69 mmHg (85-104) L 08/17/18 05:22 ABG O2 Saturation 94 % (95-98) L 08/17/18 05:22 PT/INR, D-dimer PT 17.0 Seconds (9.4-12.1) H 08/16/18 05:16 Consult Discharge Plan - Plan [facility]errals: [facility] [Primary Care Provider] - <Justin Will - Last Filed: 08/20/18 17:51> Hospitalist Progress Note - Encounter Date of Encounter: 08/20/18 - Exam Vitals: Temp Pulse Resp BP Pulse Ox 97.9 F 101 20 112/69 92 08/20/18 07:22 08/20/18 16:16 08/20/18 11:36 08/20/18 16:16 08/20/18 16:16 - Assessment and Plan (1) Pneumonia Current Visit: Yes Status: Suspected (2) Severe sepsis Current Visit: Yes Status: Acute (3) Hemoptysis Current Visit: Yes Status: Resolved (4) Acute and chronic respiratory failure with hypoxia Current Visit: Yes Status: Acute (5) COPD with exacerbation Current Visit: Yes Status: Acute (6) Obesity (BMI 35.0-39.9 without comorbidity) Current Visit: Yes Status: Acute (7) Diastolic CHF Current Visit: Yes Status: Chronic (8) Afib Current Visit: Yes Status: Chronic - Time Spent with Patient Total time spent is greater than 50% in coordination of care (as documented) at patient's floor/unit and/or counseling patient: Internal Medicine: Result - Labs CBC & Chem 7: 08/20/18 03:55 08/20/18 03:55 Labs: Short CBC 08/20/18 Range/Units 03:55 WBC 13.6 H (4.3-11.1) K/mcL Hgb 10.9 L (12.9-16.9) g/dL Hct 33.5 L (37.5-50.1) % Plt Count 192 (140-400) K/mcL Neutrophils # 11.6 H (1.6-8.9) K/mcL BMP 08/20/18 03:55 Sodium 140 Potassium 3.6 Chloride 101 Carbon Dioxide 29 BUN 26 H Creatinine 1.21 Glucose 169 H Calcium 8.4 L Liver Function 08/20/18 Range/Units 03:55 Total Bilirubin 0.7 (0.3-1.0) mg/dL AST 13 (13-39) Units/L ALT 23 (7-52) Units/L Alkaline Phosphatase 43 (34-104) Units/L Albumin 3.3 L (3.5-5.7) g/dL - ABG Interpretation ABG results: ABG ABG pH 7.44 pH Units (7.32-7.45) 08/17/18 05:22 ABG pCO2 37 mmHg (35-45) 08/17/18 05:22 ABG pO2 69 mmHg (85-104) L 08/17/18 05:22 ABG O2 Saturation 94 % (95-98) L 08/17/18 05:22 PT/INR, D-dimer PT 17.0 Seconds (9.4-12.1) H 08/16/18 05:16 - Attending Attestation I examined this patient and my medical decision-making was reviewed with the Resident Physician on 08/20/18. I agree with the documented findings, disposition and treatment plan as described except to the extent set forth below. Mr Victoria is currently admitted for acute on chronic respiratory failure and pneumonia. He remains moderate to high risk due to potential for worsening clinical status. Mr Victoria is feeling OK. No fever or chills. Doesn't like being "tied down" with respiratory equipment. No CP. Still with some cough. No GI issues. Exam alert Comfortable Mucus membranes dry Heart irreg - not tachy Lungs with no wheeze. Some scattered rales noted. Abd soft. Moves all extremities. I/P 1. Acute on chronic resp failure - continue to wean oxygen as able. Appreciate pulmonary management. 2. Pneumonia - on abx 3. COPD exac 4. Chronic diastolic heart failure Further diagnoses and plan as above. <Corey Giraldo - Last Filed: 08/20/18 11:37> (2) Pneumonia Qualifiers: Pneumonia type: due to unspecified organism Laterality: left Lung location: unspecified part of lung Qualified Code(s): J18.9 - Pneumonia, unspecified organism (8) Afib Qualifiers: Atrial fibrillation type: chronic Qualified Code(s): I48.2 - Chronic atrial fibrillation <Justin Will - Last Filed: 08/20/18 17:51> (1) Pneumonia Qualifiers: Pneumonia type: due to other aerobic Gram-negative bacteria Laterality: left Lung location: unspecified part of lung Qualified Code(s): J15.6 - Pneumonia due to other Gram-negative bacteria (7) Diastolic CHF Qualifiers: Heart failure chronicity: chronic Qualified Code(s): I50.32 - Chronic diastolic (congestive) heart failure (8) Afib Qualifiers: Atrial fibrillation type: chronic Qualified Code(s): I48.2 - Chronic atrial fibrillation
[2018-08-21] MEDS: MethylPREDNISolone 40 MG/ML VIAL IVP SCH ×4 (00:28→22:50)
[2018-08-21] MEDS: Piperacillin/Tazobactam 3.375 GM in 0.9 % Sodium Chloride Mini Bag 100 ML IVPB SCH ×3 (02:14→16:53)
[2018-08-21] MEDS: *HR* Metoprolol 5 MG/5 ML VIAL IVP SCH ×4 (03:46→21:18)
[2018-08-21] MEDS: Ipratropium/Albuterol Neb 3 ML IH SCH ×6 (04:00→23:27)
[2018-08-21 04:08] LABS: Hematocrit 35.7 % (37.5-50.1); Hemoglobin 11.4 g/dL (12.9-16.9); Lymphocytes # 0.8 K/mcL (0.6-4.6); Mean Corpuscular HGB Conc 31.9 g/dL (31.6-35.5); Mean Corpuscular Hemoglobin 27.5 pg (28.0-33.3); Mean Platelet Volume 10.6 fL (9.4-12.4); Platelet Count 197 K/mcL (140-400); Red Blood Count 4.15 M/mcL (4.19-5.50); Red Cell Distribution Width 15.4 % (11.5-14.5)
[2018-08-21 04:25] LABS: Alanine Aminotransferase 20 Units/L (7-52); Albumin 3.3 g/dL (3.5-5.7); Albumin/Globulin Ratio 1.2 (1.1-2.2); Alkaline Phosphatase 44 Units/L (34-104); Aspartate Amino Transferase 10 Units/L (13-39); BUN/Creatinine Ratio 25 (6-26); Bilirubin,Total 0.7 mg/dL (0.3-1.0); Blood Urea Nitrogen 26 mg/dL (8-23); Calcium 8.5 mg/dL (8.6-10.3); Carbon Dioxide 30 mEq/L (23-29); Chloride 101 mEq/L (98-107); Globulin 2.7 g/dL (2.4-3.5); Glucose 180 mg/dL (70-105); Osmolality,Calculated 297 (280-300); Potassium 3.8 mEq/L (3.5-5.1); Sodium 139 mEq/L (136-145); eGFR For Non-African Americans > 60 (> 60)
[2018-08-21 04:40] LABS: Monocytes # 0.3 K/mcL (0.0-1.3); Platelet Estimate Normal (Normal); Reactive Lymphocytes Present (Not Present); Smudge Cells Present (Not Present)
--- NOTE | 2018-08-21 06:06 | Internal Med Progress Note ---
<GiraldoCorey Deniz - Last Filed: 08/21/18 12:06> Hospitalist Progress Note - Encounter Date of Encounter: 08/21/18 Time of Encounter: 06:35 - Subjective Interval History: Laying comfortably in bed on highflow. Says he is breathing continues to improve after lasix started. No further hemoptysis. Cough resolved. Denies subjective fever/chills, blurry vision, dipolpia, dizzy/lightheadedness, chest pain, pleuritic chest pain, abdominal pain, N/V, or pre/syncope. - Exam Vitals: Temp Pulse Resp BP Pulse Ox 98 F 93 20 149/96 90 08/21/18 04:00 08/21/18 04:00 08/21/18 04:00 08/21/18 04:00 08/21/18 04:00 Exam: General: Awake, alert, no acute distress, signs of toxicity, laying in bed on high flow nasal cannula Head: Atraumatic, normocephalic, Eye: Normal appearance, pupils equal and round, EOMi, no scleral icterus, no conjunctival injection ENT: Mucous membranes moist Neck: Normal inspection, trachea midline, full ROM Chest: Symmetric chest rise, non tender to palpation Respiratory: Normal resp effort, increased exp phase, decreased breath sounds bilaterally, crackles L base, wheezing R base Cardiovascular: Tachycardic, irregular rhythm, S1/S2+, no murmurs, rubs, gallops, radial pulse 2+ bilat, 2+ edema Abdomen: Soft, nontender, nondistended, no guarding, rebound, or organomegaly Musculoskeletal: Spontaneously moving all extremities, no calf tenderness Skin: Warm, dry, intact. Neuro: Cranial nerves 2-12 grossly intact, no focal deficits Psych: Normal affect - Assessment and Plan (1) Acute and chronic respiratory failure with hypoxia Current Visit: Yes Status: Acute Assessment and Plan: -ABG hypoxic resp failure without hypercarbia on arrival -On high flow O2 -Continue steroid (day 6) -Continue scheduled duonebs -Wean from high flow to nc as tolerated today -Resp status improving as multilobar pneumonia being treated (2) Pneumonia Current Visit: Yes Status: Suspected Assessment and Plan: -Multilobar pneumonia -CT chest 08/16/18 with 1. Extensive new consolidative opacities in the left upper and left lower lobes with less prominent in the base of the right upper lobe, most likely pneumonia. Underlying pleural metastatic disease is not excluded. 2. Questionable central airway secretions with minimal bronchial wall thickening, potentially bronchitis or aspiration. 3. New nodular areas of consolidative opacity in the base of the medial basilar segment of the right upper lobe could be related to the above process but could also represent atelectasis, scarring, or metastatic disease. Of note, this is adjacent to unchanged suspected scarring in the right lower lobe near a previously seen hypermetabolic nodule. 4. New focal nodular right pleural thickening suspected to represent metastatic disease with invasion of the adjacent posterolateral right 9th rib, resulting in a nondisplaced pathologic fracture. 5. Increased size of a few mildly to moderately enlarged mediastinal lymph nodes. Considera tions include reactive change or metastatic disease. Recommend attention on follow-up imaging. 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 -No further hemoptysis (4) COPD with exacerbation Current Visit: Yes Status: Acute Assessment and Plan: -Exacerbation complicated with multilobar pneumonia -Continue bronchodilators and steroids -Received 4 days vanc and now 6 days zosyn for pneumonia (5) Diastolic CHF Current Visit: Yes Status: Chronic Assessment and Plan: -Chronic diastolic HF -Fluid overloaded after IVF resuscitation with sepsis -IV lasix started 08/19/18 -Breathing improving with lasix (6) Severe sepsis Current Visit: Yes Status: Acute Assessment and Plan: -Tachypnic, tachycardic, febrile, with multilobar pneumonia at admission -Started on empiric vanc, zosyn, levofloxacin -On zosyn now (day 6) -Lactic 2.4 on arrival, high of 4.5, normalized 08/17/18 -Received 3.5L IVF day of admission -Fluid overloaded 08/19/18 and IV lasix started -BCx2 drawn 08/16/18 negative -WBC 13.3 today, afebrile (7) Obesity (BMI 35.0-39.9 without comorbidity) Current Visit: Yes Status: Acute Assessment and Plan: -Recommend lifestyle modifications at dc (8) Afib Current Visit: Yes Status: Chronic Assessment and Plan: -Rate controlled at home with metoprolol, anticoagulated with apixaban -Afib currently DVT Prophylaxis: Apixaban - Time Spent with Patient Total time spent is greater than 50% in coordination of care (as documented) at patient's floor/unit and/or counseling patient: less than 15 minutes Plan of Care Discussed with: patient Internal Medicine: Result - Labs CBC & Chem 7: 08/21/18 03:54 08/21/18 03:54 Labs: Short CBC 08/21/18 Range/Units 03:54 WBC 13.3 H (4.3-11.1) K/mcL Hgb 11.4 L (12.9-16.9) g/dL Hct 35.7 L (37.5-50.1) % Plt Count 197 (140-400) K/mcL Neutrophils # 12.0 H (1.6-8.9) K/mcL BMP 08/21/18 03:54 Sodium 139 Potassium 3.8 Chloride 101 Carbon Dioxide 30 H BUN 26 H Creatinine 1.05 Glucose 180 H Calcium 8.5 L Liver Function 08/21/18 Range/Units 03:54 Total Bilirubin 0.7 (0.3-1.0) mg/dL AST 10 L (13-39) Units/L ALT 20 (7-52) Units/L Alkaline Phosphatase 44 (34-104) Units/L Albumin 3.3 L (3.5-5.7) g/dL - ABG Interpretation ABG results: ABG ABG pH 7.44 pH Units (7.32-7.45) 08/17/18 05:22 ABG pCO2 37 mmHg (35-45) 08/17/18 05:22 ABG pO2 69 mmHg (85-104) L 08/17/18 05:22 ABG O2 Saturation 94 % (95-98) L 08/17/18 05:22 PT/INR, D-dimer PT 17.0 Seconds (9.4-12.1) H 08/16/18 05:16 Consult Discharge Plan - Plan [facility]errals: [facility] [Primary Care Provider[facility] - <Nadeen Lin - Last Filed: 08/21/18 14:25> Hospitalist Progress Note - Encounter Date of Encounter: 08/21/18 - Exam Vitals: Temp Pulse Resp BP Pulse Ox 98 F 112 18 124/81 90 08/21/18 04:00 08/21/18 11:29 08/21/18 11:04 08/21/18 11:29 08/21/18 11:29 - Assessment and Plan (1) Pneumonia Current Visit: Yes Status: Suspected (2) Severe sepsis Current Visit: Yes Status: Acute (3) Hemoptysis Current Visit: Yes Status: Resolved (4) Acute and chronic respiratory failure with hypoxia Current Visit: Yes Status: Acute (5) COPD with exacerbation Current Visit: Yes Status: Acute (6) Obesity (BMI 35.0-39.9 without comorbidity) Current Visit: Yes Status: Acute (7) Diastolic CHF Current Visit: Yes Status: Chronic (8) Afib Current Visit: Yes Status: Chronic - Time Spent with Patient Total time spent is greater than 50% in coordination of care (as documented) at patient's floor/unit and/or counseling patient: Internal Medicine: Result - Labs CBC & Chem 7: 08/21/18 03:54 08/21/18 03:54 Labs: Short CBC 08/21/18 Range/Units 03:54 WBC 13.3 H (4.3-11.1) K/mcL Hgb 11.4 L (12.9-16.9) g/dL Hct 35.7 L (37.5-50.1) % Plt Count 197 (140-400) K/mcL Neutrophils # 12.0 H (1.6-8.9) K/mcL BMP 08/21/18 03:54 Sodium 139 Potassium 3.8 Chloride 101 Carbon Dioxide 30 H BUN 26 H Creatinine 1.05 Glucose 180 H Calcium 8.5 L Liver Function 08/21/18 Range/Units 03:54 Total Bilirubin 0.7 (0.3-1.0) mg/dL AST 10 L (13-39) Units/L ALT 20 (7-52) Units/L Alkaline Phosphatase 44 (34-104) Units/L Albumin 3.3 L (3.5-5.7) g/dL - ABG Interpretation ABG results: ABG ABG pH 7.44 pH Units (7.32-7.45) 08/17/18 05:22 ABG pCO2 37 mmHg (35-45) 08/17/18 05:22 ABG pO2 69 mmHg (85-104) L 08/17/18 05:22 ABG O2 Saturation 94 % (95-98) L 08/17/18 05:22 PT/INR, D-dimer PT 17.0 Seconds (9.4-12.1) H 08/16/18 05:16 - Attending Attestation I examined this patient and my medical decision-making was reviewed with the Resident Physician Dr Giraldo. I agree with the documented findings, disposition and treatment plan as described except to the extent set forth below/addl details below Mr Victoria is currently admitted for acute on chronic respiratory failure and pneumonia. awake, alert, overall improved, remains on high flow o2 and eager to attempt to wean. no wheezing or cough currently. denies fevers, chills, chest pain. no palpitations with afib. no presycope gen- alert, awake,appears stated age eyes- pupils equal round cv- reg rate and irreg/irreg rhythm, normal s1,s2, no murmurs appreciated, 1+ pitting edema to bl shins lungs- ctabl, no wheezing, rhonchi or crackles, normal resp effort on high flow o2 NC neuro- AAOx3 Acute on chronic hypoxic resp failure 2/2 multi lobar pna with unidentifiable organism- weaning of high flow, cont iv abx/steroids Acute on Chronic diastolic heart failure-cont lasix Abnormal chest CT with hx of prior lung cancer and hemoptysis in setting of multi lobar pna- notable LAD/nodules, pulm has seen this admission and bronch recommended but pt refused, it is recommneded he fu outpt and have repeat imaging in 4-6 weeks as outpt Rate controlled chronic afib- cont home meds Further diagnoses and plan as documented by resident dispo will be to home- will need 6 min walk, and [facility] which will need [facility] with <Corey Giraldo - Last Filed: 08/21/18 12:06> (2) Pneumonia Qualifiers: Pneumonia type: due to other aerobic Gram-negative bacteria Laterality: left Lung location: unspecified part of lung Qualified Code(s): J15.6 - Pneumonia due to other Gram-negative bacteria (5) Diastolic CHF Qualifiers: Heart failure chronicity: chronic Qualified Code(s): I50.32 - Chronic diastolic (congestive) heart failure (8) Afib Qualifiers: Atrial fibrillation type: chronic Qualified Code(s): I48.2 - Chronic atrial fibrillation <Nadeen Lin - Last Filed: 08/21/18 14:25> (1) Pneumonia Qualifiers: Pneumonia type: due to other aerobic Gram-negative bacteria Laterality: left Lung location: unspecified part of lung Qualified Code(s): J15.6 - Pneumonia due to other Gram-negative bacteria (7) Diastolic CHF Qualifiers: Heart failure chronicity: chronic Qualified Code(s): I50.32 - Chronic diastolic (congestive) heart failure (8) Afib Qualifiers: Atrial fibrillation type: chronic Qualified Code(s): I48.2 - Chronic atrial fibrillation
[2018-08-21] MEDS: Spironolactone 25 MG TABLET PO SCH (07:55)
[2018-08-21] MEDS: Furosemide 40 MG/4 ML VIAL IVP SCH ×2 (07:55→21:18)
[2018-08-21] MEDS: Cholecalciferol (D-3) 1,000 UNIT TABLET PO SCH (07:56)
[2018-08-21] MEDS: Aspirin Enteric Coated 81 MG Tablet PO SCH (07:56)
[2018-08-21] MEDS: Apixaban 5 MG TABLET PO SCH ×2 (07:56→21:16)
[2018-08-21] MEDS: hydrALAZINE 25 MG TABLET PO SCH ×3 (07:56→21:18)
[2018-08-21] MEDS: Fluticasone Propionate Nasal 50 MCG/SPRAY BOTTLE NS SCH ×2 (07:57→21:19)
[2018-08-21] MEDS: Insulin LISPRO 300 UNITS/3 ML VIAL SQ SCH ×4 (07:57→22:42)
[2018-08-21] MEDS: Budesonide/Formoterol 160/4.5 1 PUFF INH IH SCH ×2 (08:01→20:34)
[2018-08-21] MEDS: *HR* HYDROcodone/Acet 5/325 mg TABLET PO PRN ×2 (08:04→19:04)
[2018-08-22] MEDS: Piperacillin/Tazobactam 3.375 GM in 0.9 % Sodium Chloride Mini Bag 100 ML IVPB SCH ×3 (01:17→18:19)
[2018-08-22] MEDS: Ipratropium/Albuterol Neb 3 ML IH SCH ×6 (04:03→23:32)
[2018-08-22] MEDS: *HR* Metoprolol 5 MG/5 ML VIAL IVP SCH (04:14)
[2018-08-22 04:23] LABS: Hematocrit 32.8 % (37.5-50.1); Hemoglobin 10.7 g/dL (12.9-16.9); Mean Corpuscular HGB Conc 32.6 g/dL (31.6-35.5); Mean Corpuscular Hemoglobin 27.9 pg (28.0-33.3); Mean Corpuscular Volume 85.6 fL (83.0-100.0); Mean Platelet Volume 10.6 fL (9.4-12.4); Platelet Count 203 K/mcL (140-400); Red Blood Count 3.83 M/mcL (4.19-5.50); Red Cell Distribution Width 15.6 % (11.5-14.5)
[2018-08-22 04:33] LABS: BUN/Creatinine Ratio 30 (6-26); Blood Urea Nitrogen 25 mg/dL (8-23); Carbon Dioxide 27 mEq/L (23-29); Chloride 105 mEq/L (98-107); Glucose 183 mg/dL (70-105); Magnesium 1.8 mg/dL (1.6-2.6); Osmolality,Calculated 301 (280-300); Potassium 3.4 mEq/L (3.5-5.1); Sodium 141 mEq/L (136-145); eGFR For Non-African Americans > 60 (> 60)
[2018-08-22] MEDS: Budesonide/Formoterol 160/4.5 1 PUFF INH IH SCH ×2 (07:46→19:44)
[2018-08-22] MEDS: Spironolactone 25 MG TABLET PO SCH (08:16)
[2018-08-22] MEDS: Cholecalciferol (D-3) 1,000 UNIT TABLET PO SCH (08:16)
[2018-08-22] MEDS: Furosemide 40 MG/4 ML VIAL IVP SCH ×2 (08:16→22:27)
[2018-08-22] MEDS: Insulin LISPRO 300 UNITS/3 ML VIAL SQ SCH ×4 (08:16→22:30)
[2018-08-22] MEDS: predniSONE 20 MG TABLET PO SCH ×2 (08:17→22:27)
[2018-08-22] MEDS: Metoprolol XL (24 HR) Succ 50 MG TAB.ER.24H PO SCH (08:17)
[2018-08-22] MEDS: Aspirin Enteric Coated 81 MG Tablet PO SCH (08:17)
[2018-08-22] MEDS: hydrALAZINE 25 MG TABLET PO SCH ×3 (08:17→22:27)
[2018-08-22] MEDS: Apixaban 5 MG TABLET PO SCH ×2 (08:17→22:27)
[2018-08-22] MEDS: Fluticasone Propionate Nasal 50 MCG/SPRAY BOTTLE NS SCH ×2 (08:18→22:29)
--- NOTE | 2018-08-22 08:48 | Discharge Summary ---
<Nadeen Lin - Last Filed: 08/23/18 12:14> - NOTES TO OUTPATIENT PROVIDER Notes to Outpatient Provider: He had stable normocytic anemia throughout admission. hemoptysis is resolved. Given he is on AC rec for outpt monitoring and further work up deferred to pcpc. rec for cbc within 5 days to confirm continues to uptrend. dc hgb 11.4 Orders not resulted at time of discharge: Pending orders 08/24/18 04:00 BMP [Basic Metabolic Panel] AM 0400 Complete Blood Count w/o Diff [HEME] AM 0400 Magnesium AM 0400 08/25/18 04:00 BMP [Basic Metabolic Panel] AM 0400 Complete Blood Count w/o Diff [HEME] AM 0400 Magnesium AM 0400 Date of Encounter: 08/23/18 - Discharge Diagnosis (1) Pneumonia Status: Suspected Qualifiers: Pneumonia type: due to other aerobic Gram-negative bacteria Laterality: left Lung location: unspecified part of lung Qualified Code(s): J15.6 - Pneumonia due to other Gram-negative bacteria (2) Severe sepsis Status: Resolved (3) Hemoptysis Status: Resolved (4) Acute and chronic respiratory failure with hypoxia Status: Acute (5) COPD with exacerbation Status: Acute (6) Obesity (BMI 35.0-39.9 without comorbidity) Status: Acute (7) Diastolic CHF Status: Chronic Qualifiers: Heart failure chronicity: chronic Qualified Code(s): I50.32 - Chronic diastolic (congestive) heart failure (8) Afib Status: Chronic Qualifiers: Atrial fibrillation type: chronic Qualified Code(s): I48.2 - Chronic atrial fibrillation Hospital course: Mr. Victoria is a 77 year old male - Time Spent with Patient Total time spent providing and/or coordinating discharge services: - Discharge Medications Prescriptions: Amoxicillin/Clavulanate [Augmentin] 875 mg PO BIDWM 3 Days #6 tablet PredniSONE [Edmar] 5 mg PO TAPER 7 Days #45 tablet.dr Medel Medications: Albuterol Sulfate [Albuterol Inhaler] 2 puff IH Q6HR PRN 09/16/16 [History] Amlodipine Besylate 10 mg PO DAILY 09/16/16 [History] Apixaban [Eliquis] 5 mg PO BID 09/16/16 [History] Aspirin [Lo-Dose Aspirin EC] 81 mg PO DAILY 09/16/16 [History] Budesonide/Formoterol 160/4.5 [Symbicort 160/4.5] 2 puff IH BIDR 09/16/16 [History] Fluticasone Propionate Nasal [Flonase] 1 spray NS BID 09/16/16 [History] Furosemide [Lasix] 80 mg PO DAILY 09/16/16 [History] Guaifenesin [Mucus Relief] 400 mg PO QID PRN 09/16/16 [History] Lovastatin 20 mg PO QPM 09/16/16 [History] Montelukast [Singulair] 10 mg PO HS 09/16/16 [History] Omeprazole 20 mg PO DAILY 09/16/16 [History] Potassium Chloride [Klor-Con 10] 10 meq PO DAILY 09/16/16 [History] Tamsulosin HCl [Flomax] 0.8 mg PO DAILY 09/16/16 [History] Albuterol Neb [Proventil Neb] 2.5 mg IH Q6H PRN 12/22/17 [History] Spironolactone [Aldactone] 12.5 mg PO DAILY 12/22/17 [History] Allopurinol [Zyloprim 100 MG] 200 mg PO BID 08/16/18 [History] Cholecalciferol (D-3) [Vitamin D] 1,000 unit PO DAILY 08/16/18 [History] Ipratropium [ATROVENT Inhaler] 1 puff IH TID PRN 08/16/18 [History] Metoprolol Succinate [Toprol Xl] 50 mg PO DAILY 08/16/18 [History] hydrALAZINE [HydrALAZINE] 25 mg PO Q8HR 08/16/18 [History] Amoxicillin/Clavulanate [Augmentin] 875 mg PO BIDWM 3 Days #6 tablet 08/22/18 [Rx] PredniSONE [Edamr] 5 mg PO TAPER 7 Days #45 tablet. 08/22/18 [Rx] Allergies/Adverse Reactions: Allergy/AdvReac Type Severity Reaction Status Date / Time lisinopril Allergy UNKNOWN Verified 02/19/18 13:50 losartan Allergy UNKNOWN Verified 02/19/18 13:50 simvastatin Allergy UNKNOWN Verified 02/19/18 13:50 Date of admission: 08/16/18 07:32 Primary care physician: PCP [place] Consults: 08/16/18 07:57 Consult to Critical Care [CONS] Stat Consulting Provider: [facility] [place] Reason for Consult: severe sepsis acute hypoxic respiratory failure, hemoptysis, bilateral PNA Call Completed: Yes 08/16/18 10:46 Consult to Invasive Line Access Team [CONS] Routine Reason for Consult: Limited vascular access critically ill Line Type: EPIV 08/16/18 11:10 Consult to Dog Catcher [CONS] Routine Reason for SW Consult: Home oxygen. Already has. May need changes. 08/18/18 12:03 Consult to Case Management [CONS] Routine Comment: Consult to Nutrition [CONS] Routine Comment: Consulting Provider: NUTRITION Reason for Dietary Consult: PO Supplementation - Constitutional Vitals: Temp Pulse Resp BP Pulse Ox 99.2 F 103 20 116/75 91 08/23/18 11:26 08/23/18 11:26 08/23/18 12:10 08/23/18 11:26 08/23/18 12:10 - Patient Status Disposition: Home, Self-Care Condition: Good - Ambulatory Orders Ambulatory Orders: CT chest w con [CT] Time Frame: 1 Month, Location: Determined By Patient - Discharge Instructions Instructions: Prednisone (By mouth), Amoxicillin/Clavulanate Potassium (By mouth), Heart Failure (DC), Acute Respiratory Distress Syndrome (DC), Chronic Obstructive Pulmonary Disease (DC), Sepsis (DC), Bacterial Pneumonia (DC) Follow Up With: Stephane Novoa MD [Partnered Physician] - 09/05/18 8:15 am OR,PCP [Primary Care Provider] - 08/27/18 11:00 am - Attending Attestation I examined this patient and my medical decision-making was reviewed with the Resident Physician Dr Giraldo. I agree with the documented findings, disposition and treatment plan as described except to the extent set forth below/addl details below Mr Victoria was admitted for acute on chronic respiratory failure with pneumonia and chf exacerbation. He noted hemoptysis and has history of lung cancer with abnormal ct scan here worrisome for recurrence. He has been treated with IV abx, steroids, IV lasix and is weaned to [place] oxygen. Pulmonology recommended bronchoscopy given history and ct findings which he refused. He will follow up outpt for further management. awake, alert, no sob on o2 nc. denies cough, wheezing, sob with exertion, fevers or chills. le edema continues to improve. he is feeling well and happy to dc to home today. discharge plan discussed and all questions answered. gen- alert, awake,appears stated age, pleasant cv- reg rate and irreg/irreg rhythm, normal s1,s2, no murmurs appreciated, + pitting edema to bl shins improved from yesterday lungs- ctabl, no wheezing, rhonchi or crackles, normal resp effort on o2 [place] neuro- AAOx3 Acute on chronic hypoxic resp failure 2/2 multi lobar pna with unidentifiable organism, and complicated by acute on chronic diastolic HF exacerbation resolved -weaned to o2 nc, new o2 rx already taken care of -cont pna treatment to completion outpt -cont home lasix on dc -given concern of hemoptysis, lung cancer hx and ct findings- outpt pulm fu Acute on Chronic diastolic heart failure, improved-cont home lasix and aldacotone, cont home med regimen on discharge, fu with outpt provider Hemoptysis on AC Abnormal chest CT with hx of prior lung cancer and hemoptysis in setting of multi lobar pna- notable LAD/nodules, pulm has seen this admission and bronch recommended but pt refused, it is recommended he fu outpt and have repeat imaging in 4-6 weeks as outpt -cbc within 5 days outpt Rate controlled chronic afib- BB, AC Stable normocytic anemia throughout admission- hgb 11.4 on discharge, only bleeding was hemoptysis, as he is on AC for afib it is recommended he fu with pcp for further monitioring and work up, fu with pulm as above, pcp cbc within 5 days to confirm remains stable Further diagnoses and plan as documented by resident dispo dc to home in stable condition with outpt fu <Corey Giraldo - Last Filed: 08/23/18 14:17> - NOTES TO OUTPATIENT PROVIDER Notes to Outpatient Provider: Admitted 08/16/18 with sepsis 2/2 multilobar pn eumonia, hemoptysis, and COPD exacerbation. Received 4 days vanc, 7 days zosyn. Was fluid overloaded with sepsis fluids and subsequently diuresed with lasix with improvement in breathing each day. He will dc home with 2 week steroid taper, 3 days augmentin for total 10 days abx and will need repeat CT chest in 4-6 weeks with followup with pulmonology Dr Novoa after CT chest. Orders not resulted at time of discharge: Pending orders 08/23/18 04:00 BMP [Basic Metabolic Panel] AM 0400 Complete Blood Count w/o Diff [HEME] AM 0400 Magnesium AM 0400 08/24/18 04:00 BMP [Basic Metabolic Panel] AM 0400 Complete Blood Count w/o Diff [HEME] AM 0400 Magnesium AM 0400 08/25/18 04:00 BMP [Basic Metabolic Panel] AM 0400 Complete Blood Count w/o Diff [HEME] AM 0400 Magnesium AM 0400 Date of Encounter: 08/23/18 Time of Encounter: 06:45 - Discharge Diagnosis (1) Acute and chronic respiratory failure with hypoxia Priority: Primary Status: Acute Assessment and Plan: -ABG hypoxic resp failure without hypercarbia on arrival -Steroids (day 8), transitioned to PO yst and will do 2 wk taper at dc -Continue scheduled duonebs -Weaned from highflow, on home rate 3L O2 via nc -6 min walk with increased O2 needs of 4L at dc -Resp status improving as multilobar pneumonia being treated (2) Pneumonia Priority: Secondary Status: Suspected Assessment and Plan: -Multilobar pneumonia -CT chest 08/16/18 with 1. Extensive new consolidative opacities in the left upper and left lower lobes with less prominent in the base of the right upper lobe, most likely pneumonia. Underlying pleural metastatic disease is not excluded. 2. Questionable central airway secretions with minimal bronchial wall thickening, potentially bronchitis or aspiration. 3. New nodular areas of consolidative opacity in the base of the medial basilar segment of the right upper lobe could be related to the above process but could also represent atelectasis, scarring, or metastatic disease. Of note, this is adjacent to unchanged suspected scarring in the right lower lobe near a previously seen hypermetabolic nodule. 4. New focal nodular right pleural thickening suspected to represent metastatic disease with invasion of the adjacent posterolateral right 9th rib, resulting in a nondisplaced pathologic fracture. 5. Increased size of a few mildly to moderately enlarged mediastinal lymph nodes. Considerations include reactive change or metastatic disease. Recommend attention on follow-up imaging. -Received 4 days vanc (stopped 08/19/18) -Zosyn (day 7) (stopped 08/22/18) -MRSA neg -BC x2 drawn 08/16/18 neg -Resp PCR neg -Sputum culture, legionella, and s pneumo antigen neg -WBC 10.6, afebrile, tachycardic -Pulm following -Will dc with 3 days augmentin for total 10 days abx and 2 week steroid taper. 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 -No further hemoptysis (4) COPD with exacerbation Priority: Secondary Status: Acute Assessment and Plan: -Exacerbation complicated with multilobar pneumonia -Continue bronchodilators and steroids -Received 4 days vanc and now 7 days zosyn for pneumonia -IV steroids transitioned to PO yst, need 2 week taper at dc (5) Diastolic CHF Priority: Secondary Status: Chronic Assessment and Plan: -Chronic diastolic HF -Fluid overloaded after IVF resuscitation with sepsis -IV lasix started 08/19/18 -Breathing improving with lasix -Transition to PO today at dc Qualifiers: Heart failure chronicity: chronic Qualified Code(s): I50.32 - Chronic diastolic (congestive) heart failure (6) Severe sepsis Priority: Secondary Status: Resolved Assessment and Plan: -Tachypnic, tachycardic, febrile, with multilobar pneumonia at admission -Started on empiric vanc, zosyn, levofloxacin -On zosyn now (day 7) -Lactic 2.4 on arrival, high of 4.5, normalized 08/17/18 -Received 3.5L IVF day of admission -Fluid overloaded 08/19/18 and IV lasix started -BCx2 drawn 08/16/18 negative -WBC 10.6 today, afebrile (7) Afib Priority: Secondary Status: Chronic Assessment and Plan: -Rate controlled at home with metoprolol, anticoagulated with apixaban -Afib currently -Transitioned IV metoprolol to home 50mg metoprolol ER today -HR improving, 90's when I was in room prior to morning metoprolol given Qualifiers: Atrial fibrillation type: chronic Qualified Code(s): I48.2 - Chronic atrial fibrillation (8) Obesity (BMI 35.0-39.9 without comorbidity) Priority: Secondary Status: Acute Assessment and Plan: -Recommend lifestyle modifications at dc Hospital course: Mr. Victoria is a 77 year old male presented to the ED complaining of increased cough and hemoptysis. States the increase in cough began approximately 2 days prior to arrival and has been accompanied by increased shortness of breath. States his home oxygen and nebulizers have not been helping. He does admit to some accompanying fever, chills, and diaphoresis. Hemoptysis began this morning and has been blood tinged sputum rather than mykel blood loss. He does state that he cracked a rib during a fall 6 months ago, but has not experienced complications at this time. CT chest extensive new consolidative opacities in the left upper and left lower lobes with less prominent in the base of the right upper lobe, most likely pneumonia. No obvious endobronchial lesions on CT. Pulm followed and offered bronch which he refused. Received 4 days vanc and 7 days zosyn for multi lobar pneumonia. Blood, sputum, legionella, s pneumo, and resp PCR negative. Hemoptysis resolved and likely 2/2 current pneumonia and bronchitis that complicated with home apixaban use. Received 3.5L IVF day of admission and became fluid overloaded and subsequently diuresed with IV lasix. Remained in Afib and transitioned from IV metoprolol back to home PO metoprolol. 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 Discharge discussed with: patient, nurse - Time Spent with Patient Total time spent providing and/or coordinating discharge services: Less than 30 minutes Date of admission: 08/16/18 07:32 Primary care physician: [facility] Consults: 08/16/18 07:57 Consult to Critical Care [CONS] Stat Consulting Provider: [facility] [place] Reason for Consult: severe sepsis acute hypoxic respiratory failure, hemoptysis, bilateral PNA Call Completed: Yes 08/16/18 10:46 Consult to Invasive Line Access Team [CONS] Routine Reason for Consult: Limited vascular access critically ill Line Type: EPIV 08/16/18 11:10 Consult to Dog Catcher [CONS] Routine Reason for SW Consult: Home oxygen. Already has. May need changes. 08/18/18 12:03 Consult to Case Management [CONS] Routine Comment: Consult to Nutrition [CONS] Routine Comment: Consulting Provider: NUTRITION Reason for Dietary Consult: PO Supplementation Discharging clinician: Corey Giraldo Anticipated date of discharge: 08/23/18 - Constitutional Vitals: Temp Pulse Resp BP Pulse Ox 97.5 F L 106 20 131/82 90 08/22/18 06:54 08/22/18 06:54 08/22/18 04:03 08/22/18 06:54 08/22/18 06:54 Exam: General: Awake, alert, no acute distress, signs of toxicity, Sitting on edge of bed on nasal cannula Head: Atraumatic, normocephalic, Eye: Normal appearance, pupils equal and round, EOMi, no scleral icterus, no conjunctival injection ENT: Mucous membranes moist Neck: Normal inspection, trachea midline, full ROM Chest: Symmetric chest rise, non tender to palpation Respiratory: Normal resp effort, increased exp phase, decreased breath sounds bilaterally, crackles L base, scattered exp wheezing most at R base Cardiovascular: Tachycardic, irregular rhythm, S1/S2+, no murmurs, rubs, gallops, radial pulse 2+ bilat, 2+ edema Abdomen: Soft, nontender, nondistended, no guarding, rebound, or organomegaly Musculoskeletal: Spontaneously moving all extremities, no calf tenderness Skin: Warm, dry, intact. Neuro: Cranial nerves 2-12 grossly intact, no focal deficits Psych: Normal affect - Patient Status Functional capacity at discharge: independent ambulation Overall status at discharge: patient is progressing back to baseline - Diet and Activity Activity: increase activity as tolerated, resume usual activities as tolerated, wear oxygen at all times Diet: diabetic diet, other (cardiac)
[2018-08-22] MEDS: *HR* HYDROcodone/Acet 5/325 mg TABLET PO PRN (10:03)
--- NOTE | 2018-08-22 10:22 | Internal Med Progress Note ---
<Corey Giraldo Deniz - Last Filed: 08/22/18 12:00> Hospitalist Progress Note - Encounter Date of Encounter: 08/22/18 Time of Encounter: 06:35 - Subjective Interval History: Sitting on edge of bed on nc. Says he is breathing continues to improve after lasix started. No further hemoptysis. Cough resolved. Denies subjective fever/chills, blurry vision, dipolpia, dizzy/lightheadedness, chest pain, pleuritic chest pain, abdominal pain, N/V, or pre/syncope. - Exam Vitals: Temp Pulse Resp BP Pulse Ox 97.5 F L 106 24 131/82 91 08/22/18 06:54 08/22/18 06:54 08/22/18 07:40 08/22/18 06:54 08/22/18 07:40 Exam: General: Awake, alert, no acute distress, signs of toxicity, Sitting on edge of bed on nasal cannula Head: Atraumatic, normocephalic, Eye: Normal appearance, pupils equal and round, EOMi, no scleral icterus, no conjunctival injection ENT: Mucous membranes moist Neck: Normal inspection, trachea midline, full ROM Chest: Symmetric chest rise, non tender to palpation Respiratory: Normal resp effort, increased exp phase, decreased breath sounds bilaterally, crackles L base, scattered exp wheezing most at R base Cardiovascular: Tachycardic, irregular rhythm, S1/S2+, no murmurs, rubs, gallops, radial pulse 2+ bilat, 2+ edema Abdomen: Soft, nontender, nondistended, no guarding, rebound, or organomegaly Musculoskeletal: Spontaneously moving all extremities, no calf tenderness Skin: Warm, dry, intact. Neuro: Cranial nerves 2-12 grossly intact, no focal deficits Psych: Normal affect - Assessment and Plan (1) Acute and chronic respiratory failure with hypoxia Current Visit: Yes Status: Acute Assessment and Plan: -ABG hypoxic resp failure without hypercarbia on arrival -On high flow O2 -Steroids (day 7), transitioned to PO today and will do 2 wk taper at dc -Continue scheduled duonebs -Weaned from highflow, on home rate 3L O2 via nc now -6 min walk this morning with increased O2 needs than previous, rx for 4L at dc -Resp status improving as multilobar pneumonia being treated -Will likely dc tomorrow after 1 more day IV lasix (2) Pneumonia Current Visit: Yes Status: Suspected Assessment and Plan: -Multilobar pneumonia -CT chest 08/16/18 with 1. Extensive new consolidative opacities in the left upper and left lower lobes with less prominent in the base of the right upper lobe, most likely pneumonia. Underlying pleural metastatic disease is not excluded. 2. Questionable central airway secretions with minimal bronchial wall thickening, potentially bronchitis or aspiration. 3. New nodular areas of consolidative opacity in the base of the medial basilar segment of the right upper lobe could be related to the above process but could also represent atelectasis, scarring, or metastatic disease. Of note, this is adjacent to unchanged suspected scarring in the right lower lobe near a previously seen hypermetabolic nodule. 4. New focal nodular right pleural thickening suspected to represent metastatic disease with invasion of the adjacent posterolateral right 9th rib, resulting in a nondisplaced pathologic fracture. 5. Increased size of a few mildly to moderately enlarged mediastinal lymph nodes. Consider ations include reactive change or metastatic disease. Recommend attention on follow-up imaging. -Received 4 days vanc (stopped 08/19/18) -Zosyn (day 7) (stopped 08/22/18) -MRSA neg -BC x2 drawn 08/16/18 neg -Resp PCR neg -Sputum culture, legionella, and s pneumo antigen neg -WBC 12, afebrile, tachycardic -Pulm following -Will dc with 3 days augmentin for total 10 days abx and 2 week steroid taper. 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 prior lung cancer -No further hemoptysis (4) COPD with exacerbation Current Visit: Yes Status: Acute Assessment and Plan: -Exacerbation complicated with multilobar pneumonia -Continue bronchodilators and steroids -Received 4 days vanc and now 7 days zosyn for pneumonia -IV steroids transitioned to PO today, need 2 week taper at dc (5) Diastolic CHF Current Visit: Yes Status: Chronic Assessment and Plan: -Chronic diastolic HF -Fluid overloaded after IVF resuscitation with sepsis -IV lasix started 08/19/18 -Breathing improving with lasix (6) Severe sepsis Current Visit: Yes Status: Resolved Assessment and Plan: -Tachypnic, tachycardic, febrile, with multilobar pneumonia at admission -Started on empiric vanc, zosyn, levofloxacin -On zosyn now (day 7) -Lactic 2.4 on arrival, high of 4.5, normalized 08/17/18 -Received 3.5L IVF day of admission -Fluid overloaded 08/19/18 and IV lasix started -BCx2 drawn 08/16/18 negative -WBC 12 today, afebrile (7) Obesity (BMI 35.0-39.9 without comorbidity) Current Visit: Yes Status: Acute Assessment and Plan: -Recommend lifestyle modifications at dc (8) Afib Current Visit: Yes Status: Chronic Assessment and Plan: -Rate controlled at home with metoprolol, anticoagulated with apixaban -Afib currently -Transitioned IV metoprolol to home 50mg metoprolol ER today -HR improving, 90's when I was in room prior to morning metoprolol given DVT Prophylaxis: Apixaban - Time Spent with Patient Total time spent is greater than 50% in coordination of care (as documented) at patient's floor/unit and/or counseling patient: less than 15 minutes Plan of Care Discussed with: patient Internal Medicine: Result - Labs CBC & Chem 7: 08/22/18 03:55 08/22/18 03:55 Labs: Short CBC 08/22/18 Range/Units 03:55 WBC 12.0 H (4.3-11.1) K/mcL Hgb 10.7 L (12.9-16.9) g/dL Hct 32.8 L (37.5-50.1) % Plt Count 203 (140-400) K/mcL BMP 08/22/18 03:55 Sodium 141 Potassium 3.4 L Chloride 105 Carbon Dioxide 27 BUN 25 H Creatinine 0.84 Glucose 183 H Calcium 7.0 L - ABG Interpretation ABG results: ABG ABG pH 7.44 pH Units (7.32-7.45) 08/17/18 05:22 ABG pCO2 37 mmHg (35-45) 08/17/18 05:22 ABG pO2 69 mmHg (85-104) L 08/17/18 05:22 ABG O2 Saturation 94 % (95-98) L 08/17/18 05:22 PT/INR, D-dimer PT 17.0 Seconds (9.4-12.1) H 08/16/18 05:16 Consult Discharge Plan - Plan Referrals: Stephane Novoa MD [Partnered Physician] - 09/05/18 8:15 am [facility] - 08/27/18 11:00 am Prescriptions: Amoxicillin/Clavulanate [Augmentin] 875 mg PO BIDWM 3 Days #6 tablet PredniSONE [Edmar] 5 mg PO TAPER 7 Days #45 tablet. <Nadeen Lin - Last Filed: 08/22/18 15:52> Hospitalist Progress Note - Encounter Date of Encounter: 08/22/18 - Exam Vitals: Temp Pulse Resp BP Pulse Ox 97.5 F L 89 16 143/76 92 08/22/18 06:54 08/22/18 15:32 08/22/18 11:24 08/22/18 15:32 08/22/18 15:32 - Assessment and Plan (1) Pneumonia Current Visit: Yes Status: Suspected (2) Severe sepsis Current Visit: Yes Status: Resolved (3) Hemoptysis Current Visit: Yes Status: Resolved (4) Acute and chronic respiratory failure with hypoxia Current Visit: Yes Status: Acute (5) COPD with exacerbation Current Visit: Yes Status: Acute (6) Obesity (BMI 35.0-39.9 without comorbidity) Current Visit: Yes Status: Acute (7) Diastolic CHF Current Visit: Yes Status: Chronic (8) Afib Current Visit: Yes Status: Chronic - Time Spent with Patient Total time spent is greater than 50% in coordination of care (as documented) at patient's floor/unit and/or counseling patient: Internal Medicine: Result - Labs CBC & Chem 7: 08/22/18 03:55 08/22/18 03:55 Labs: Short CBC 08/22/18 Range/Units 03:55 WBC 12.0 H (4.3-11.1) K/mcL Hgb 10.7 L (12.9-16.9) g/dL Hct 32.8 L (37.5-50.1) % Plt Count 203 (140-400) K/mcL BMP 08/22/18 03:55 Sodium 141 Potassium 3.4 L Chloride 105 Carbon Dioxide 27 BUN 25 H Creatinine 0.84 Glucose 183 H Calcium 7.0 L - ABG Interpretation ABG results: ABG ABG pH 7.44 pH Units (7.32-7.45) 08/17/18 05:22 ABG pCO2 37 mmHg (35-45) 08/17/18 05:22 ABG pO2 69 mmHg (85-104) L 08/17/18 05:22 ABG O2 Saturation 94 % (95-98) L 08/17/18 05:22 PT/INR, D-dimer PT 17.0 Seconds (9.4-12.1) H 08/16/18 05:16 - Attending Attestation I examined this patient and my medical decision-making was reviewed with the Resident Physician Dr Giraldo. I agree with the documented findings, disposition and treatment plan as described except to the extent set forth below/addl details below Mr Victoria is currently admitted for acute on chronic respiratory failure and pneumonia and chf exacerbation. awake, alert, stable on o2 nc at rest, some sob with exertion. no cough, wheezing currently no fever or chills. denies cp, pressure or palpitations. gen- alert, awake,appears stated age cv- reg rate and irreg/irreg rhythm, normal s1,s2, no murmurs appreciated, 1+ pitting edema to bl shins lungs- ctabl, no wheezing, rhonchi or crackles, normal resp effort on high flow o2 NC neuro- AAOx3 Acute on chronic hypoxic resp failure 2/2 multi lobar pna with unidentifiable organism- weaned of high flow, steroid tapering, cont nebs, iv lasix bid today and tonight, 6 min walk and new o2 requirement for home o2 noted, will dc with oral meds to complete abx course Acute on Chronic diastolic heart failure-cont lasix IV today and hopefully can transition to home po in am, cont home aldactone Hemoptysis Abnormal chest CT with hx of prior lung cancer and hemoptysis in setting of multi lobar pna- notable LAD/nodules, pulm has seen this admission and bronch recommended but pt refused, it is recommended he fu outpt and have repeat imaging in 4-6 weeks as outpt Rate controlled chronic afib- BB, AC Further diagnoses and plan as documented by resident dispo will be to home- SW has new o2 rx and med rxs [facility] for a likely dc to home tomorrow after another day of BID IV lasix <Corey Giraldo - Last Filed: 08/22/18 12:00> (2) Pneumonia Qualifiers: Pneumonia type: due to other aerobic Gram-negative bacteria Laterality: left Lung location: unspecified part of lung Qualified Code(s): J15.6 - Pneumonia due to other Gram-negative bacteria (5) Diastolic CHF Qualifiers: Heart failure chronicity: chronic Qualified Code(s): I50.32 - Chronic diastolic (congestive) heart failure (8) Afib Qualifiers: Atrial fibrillation type: chronic Qualified Code(s): I48.2 - Chronic atrial fibrillation <Nadeen Lin - Last Filed: 08/22/18 15:52> (1) Pneumonia Qualifiers: Pneumonia type: due to other aerobic Gram-negative bacteria Laterality: left Lung location: unspecified part of lung Qualified Code(s): J15.6 - Pneumonia due to other Gram-negative bacteria (7) Diastolic CHF Qualifiers: Heart failure chronicity: chronic Qualified Code(s): I50.32 - Chronic diastolic (congestive) heart failure (8) Afib Qualifiers: Atrial fibrillation type: chronic Qualified Code(s): I48.2 - Chronic atrial fibrillation
[2018-08-23] MEDS: Piperacillin/Tazobactam 3.375 GM in 0.9 % Sodium Chloride Mini Bag 100 ML IVPB SCH (01:23)
[2018-08-23] MEDS: Ipratropium/Albuterol Neb 3 ML IH SCH ×4 (03:49→16:18)
[2018-08-23 03:58] LABS: Hematocrit 34.8 % (37.5-50.1); Hemoglobin 11.4 g/dL (12.9-16.9); Mean Corpuscular HGB Conc 32.8 g/dL (31.6-35.5); Mean Corpuscular Hemoglobin 27.8 pg (28.0-33.3); Mean Corpuscular Volume 84.9 fL (83.0-100.0); Mean Platelet Volume 9.9 fL (9.4-12.4); Platelet Count 223 K/mcL (140-400); Red Cell Distribution Width 15.6 % (11.5-14.5)
[2018-08-23 04:17] LABS: BUN/Creatinine Ratio 25 (6-26); Blood Urea Nitrogen 28 mg/dL (8-23); Calcium 8.1 mg/dL (8.6-10.3); Carbon Dioxide 32 mEq/L (23-29); Chloride 99 mEq/L (98-107); Glucose 212 mg/dL (70-105); Magnesium 2.4 mg/dL (1.6-2.6); Osmolality,Calculated 296 (280-300); Potassium 3.9 mEq/L (3.5-5.1); Sodium 137 mEq/L (136-145); eGFR For Non-African Americans > 60 (> 60)
[2018-08-23] MEDS: Budesonide/Formoterol 160/4.5 1 PUFF INH IH SCH (07:37)
[2018-08-23] MEDS: Spironolactone 25 MG TABLET PO SCH (08:41)
[2018-08-23] MEDS: predniSONE 20 MG TABLET PO SCH (08:42)
[2018-08-23] MEDS: Cholecalciferol (D-3) 1,000 UNIT TABLET PO SCH (08:43)
[2018-08-23] MEDS: Metoprolol XL (24 HR) Succ 50 MG TAB.ER.24H PO SCH (08:43)
[2018-08-23] MEDS: hydrALAZINE 25 MG TABLET PO SCH ×2 (08:43→15:36)
[2018-08-23] MEDS: Furosemide 40 MG/4 ML VIAL IVP SCH (08:43)
[2018-08-23] MEDS: Apixaban 5 MG TABLET PO SCH (08:43)
[2018-08-23] MEDS: Aspirin Enteric Coated 81 MG Tablet PO SCH (08:43)
[2018-08-23] MEDS: Fluticasone Propionate Nasal 50 MCG/SPRAY BOTTLE NS SCH (08:46)
[2018-08-23] MEDS: *HR* HYDROcodone/Acet 5/325 mg TABLET PO PRN ×2 (09:00→15:36)
[2018-08-23] MEDS: Insulin LISPRO 300 UNITS/3 ML VIAL SQ SCH ×2 (09:02→11:48)
[2018-08-23 11:27] VITALS: BP 116/75
== END 2018-08-23 16:52 | disposition home or self-care (01) | DRG 871 ==
LOC: EMEROOARM 04:25 → SUATTDRO 07:32 → 2SOUTHHOLD 07:32 → ICNU 09:25 → 2NENU 08-17 15:33
PROVIDERS: ADMIT Internal Medicine Pulmonary Disease; ATTEND Internal Medicine